=== PATIENT | male | born 1975 | race Caucasian/White ===

== ENCOUNTER 2017-02-16 06:14 | Day surgery (SDC) | payer OTHER, SELFPAY ==
[2017-02-14 15:41] VITALS: BMI 21.9
[2017-02-16] VITALS (11 sets, daily range): BP systolic 108–124; BP diastolic 65–77; PULSE 66–83; RESP 12–18; TEMP 36.2–43; O2SAT 95–98; BMI 21.9
[2017-02-16 07:04] LABS: Basophils # 0.1 K/mm3 (0-0.2); Basophils % 1.2 % (0.1-2.0); Eosinophils # 0.3 K/mm3 (0.0-0.4); Eosinophils % 5.6 % (0.1-12.0); Hematocrit 45.8 % (42.0-52.0); Lymphocytes # 2.2 K/mm3 (0.7-4.5); Lymphocytes % 35.9 K/mm3 (10-50); Mean Corpuscular HGB Conc 32.9 g/dL (31.8-35.4); Mean Corpuscular Hemoglobin 30.6 pg (27.0-31.2); Mean Corpuscular Volume 93.1 fl (80-94); Mean Platelet Volume 9.2 fl (7.4-10.4); Monocytes # 0.5 K/mm3 (0.1-1.0); Monocytes % 7.6 % (1.7-9.3); Neutrophils % 49.7 % (37.0-80.0); Platelet Count 228 K/mm3 (142-424); Red Blood Count 4.91 M/mm3 (4.60-6.20); Red Cell Distribution Width 12.4 % (11.5-17.5)
--- NOTE | 2017-02-16 07:09 | HMH.ANESCL ---
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
--- NOTE | 2017-02-16 07:12 | P.PN_ITS ---
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
[2017-02-16 07:17] LABS: Anion Gap 7.9 mEq/L (5-15); Blood Urea Nitrogen 13 mg/dL (7-18); Carbon Dioxide 29 mmol/L (21.0-32.0); Chloride 107 mmol/L (98-107); Creatinine Clearance Estimated 103 mg/ml (0-300); Estimated Glomerular Filt Rate > 60 ml/min (>60); GFR (African American) > 60 ML/MIN (>60); Glucose 101 mg/dL (74-106); Potassium 3.9 mmoL/L (3.5-5.1); Sodium 140 mmol/L (136-145)
[2017-02-16 07:22] LABS: Microscopic, Urine URINE MICROSCOPIC (MICROSCOPIC)
[2017-02-16 07:24] LABS: Appearance,Urine CLEAR (Clear); Bilirubin,Urine Negative (Negative); Blood, Urine Negative (Negative); Color,Urine YELLOW (Yellow); Glucose,Urine (UA) Negative (Negative); Ketones,Urine Negative (Negative); Leukocyte Esterase,Urine Negative (Negative); Nitrate,Urine Negative (Negative); PH,Urine 6.5 (5.0-8.5); Protein,Urine Negative (Negative); Urobilinogen,Urine 0.2 EU/dl (0.2)
[2017-02-16 07:34] LABS: Bacteria,Urine Trace /lpf; Squamous Epithelial Cell,Urine Occasional #/hpf (0-5)
--- NOTE | 2017-02-16 08:09 | PC.NURSE ---
0745-#16 FR BRADY CATHETER INSERTED PER DR. DICK AT THIS TIME.
--- NOTE | 2017-02-16 08:37 | SUR.OPER ---
0837-FAMILY UPDATED AT THIS TIME PER BUTCH TRINH
--- NOTE | 2017-02-16 09:05 | HMH.OPNOTE ---
Date of procedure: 02/16/17 Pre-op Diagnosis:: Right inguinal hernia Post-op diagnosis:: same Procedure performed:: Open repair right inguinal hernia Surgeon:: Tobias Gregg MD Anesthesia: other (General with laryngeal mask airway) Estimated blood loss (mL): 10 Operative findings:: Severe laxity of the inguinal floor with small hernia at the internal ring Operative note:: After informed consent was obtained, the patient was taken to the operating room and placed in the supine position. General anesthesia was induced and abdomen/groin/scrotum were prepped and draped in a sterile fashion. After infiltration with local anesthetic an oblique incision was made in the right groin. A combination of sharp dissection with scalpel and electrocautery was utilized to transect through Jose's fascia to the level of the external aponeurosis. The external aponeurosis was opened sharply to the level of the external ring the contents of the canal were elevated. Severe laxity of the floor was encountered. Dissection proximally revealed a small herniation at the internal ring. No hernia sac was visible. A medium PreFix plug was secured in the hernia with Ethibond suture. A PreFix mesh was then secured in an overlay fashion to the shelving edge inferiorly and fascial margin superiorly. The external aponeurosis was reapproximated with running Vicryl suture. Jose's fascia was reapproximated in the same manner. Skin was closed with 4-0 Monocryl in a running subcuticular manner. Sterile dressings were applied. The patient's anesthetic agents were reversed and he was taken to recovery after removal of his general laryngeal mask airway. Pathology: none sent Condition: stable Disposition: PACU Complications:: No immediate
--- NOTE | 2017-02-16 09:14 | HMH.ANESI ---
[facility] Anesthesia Record Part I Intake, IV Amount: 1,800 Estimated blood loss (mL): 10 Urine output (mL): 200 Blood Pressure: 122/75 SaO2: 96 Pulse Rate: 75 Respiratory Rate: 12 Temperature: 97.8 F Patient is:: Drowsy Stable to PACU at:: 09:10
--- NOTE | 2017-02-16 09:16 | P.PN_ITS ---
[facility] Anesthesia Record Part II Discharge Time: 09:40 Destination: [facility] PACU nurse assessment reviewed?: Yes Patient Condition:: Good Anesthesia Complications:: None
--- NOTE | 2017-02-16 09:16 | HMH.ANESII ---
[facility] Anesthesia Record Part II Discharge Time: 09:40 Destination: [facility] PACU nurse assessment reviewed?: Yes Patient Condition:: Good Anesthesia Complications:: None
[2017-02-16 16:02] LABS: Microscopic,Cath URINE MICROSCOPIC (MICROSCOPIC)
[2017-02-16 16:20] LABS: Appearance,Urine/Cath TURBID (Clear); Bilirubin,Cath Negative (Negative); Blood, Urine/Cath Negative (Negative); Color,Urine/Cath YELLOW (Yellow); Glucose,Urine/Cath (UA) Negative (Negative); Ketones,Urine/Cath Negative (Negative); Leukocyte Esterase,Cath Negative (Negative); Nitrate,Cath Negative (Negative); Protein,Urine/Cath Negative (Negative); Specific Gravity, Urine/Cath 1.015 (1.005-1.030); Urobilinogen,Cath 0.2 EU/dl (0.2)
[2017-02-16 16:31] LABS: Bacteria,Urine/Cath 4+ /lpf
== END 2017-02-16 10:45 | disposition home or self-care (01) ==
LOC: OR 06:16
PROVIDERS: PCP Family Medicine; Visit Provider Surgery
PROC: (CPT 49505; principal; 2017-02-16 07:30)
DX: K40.90 Unilateral inguinal hernia, without obstruction or gangrene, not specified as recurrent (principal)
CPT/HCPCS: 49505; 80048; 81001; 85025; 87086; 96374; J0131; J2405

== ENCOUNTER → 2019-12-09 14:56 | Outpatient (POV) | payer OTHER, SELFPAY | PROVIDERS: Visit Provider Dermatology | DX: Z00.00 Encounter for general adult medical examination without abnormal findings (principal) ==

== ENCOUNTER 2023-03-21 14:06 | Outpatient (CLI) | payer BC, SELFPAY | END 2023-03-21 23:59 | LOC: RT 14:07 | PROVIDERS: Visit Provider Physician Assistant | DX: R00.2 Palpitations (principal); R06.00 Dyspnea, unspecified | CPT/HCPCS: 93270 ==

== ENCOUNTER 2023-04-06 13:02 | Outpatient (CLI) | payer BC, SELFPAY ==
--- NOTE | 2023-04-06 13:04 | CA_ITS ---
APPROVED REPORT EXAM: Comprehensive 2D, Doppler, and color-flow Echocardiogram Supervisor Underwriting Clerks: Shelly Clemens, EDUARDO, RVS Ht: 6 ft 4 in Wt: 188lbs BSA: 2.16 BP: 128/86 mmHg Indications: Palpitations with exertion, Tobacco use 2D Dimensions Aortic Root 3.89 cm LA Volume 64.40 mL Left Atrium 2.65 cm LA Volume Index 29.80 mL/m2 (M/F) 16-34 RVID Base (AP4) 4.29 cm (M/F) 2.5-4.1 EF AP4 74.70 % LVOT 2.16 cm (M/F) 1.5-2.5 GL Strain -24.1 % M-Mode Dimensions RVDd 1.04 cm (0.9-2.6) LVDd 0.91 cm (3.5-5.7) Ao Diam 3.75 cm (2.0-3.7) LVDs 3.60 cm (3.5-5.7) IVSd 5.65 cm (0.6-1.1) PWd 0.00 cm (0.6-1.1) EF (Teich) 3300.00% EPSs 0.20 cm FS 295.60% EDV (Teich) 1.60 mL TAPSE 2.63 (<1.7) ESV (Teich) 54.40 mL LV Diastology E Decel Time 125 (160-240 msec) E/A Ratio 2.48 MED E' 9.1 (>= 7 cm/sec) MED A' 11.50 cm/s E'/MED E' Ratio 10.87 (<= 14) LAT E' 12.5 (>= 10 cm/sec) LAT A' 9.30 cm/s E/LAT E' Ratio 7.91 (<= 14) Aortic Valve LVOT Max 115.0 (70-110 cm/s) JUDI Index 1.55 cm2/m2 LVOT VTI 25.76 cm AoV Peak Henry. 133.0 (50-130 cm/s) AO Mean GR. 3.60 (<5 mmHg) AO VTI 28.3 (18-25 cm) JUDI (VTI) 3.34 (2.5-4.5 cm2) Mitral Valve MV E Max Henry. 99.0 (40-130 cm/s) MV A Velocity 40.0 (40-130 cm/s) E/A Ratio 2.48 MV Decel. Time 125 (160-240 ms) Left Ventricle The left ventricle is normal size. The left ventricular systolic function is normal. The left ventricular ejection fraction is within the normal range. There is normal left ventricular wall thickness. There is normal LV segmental wall motion. The left ventricular diastolic function is normal. LVEF is 60%. Right Ventricle The right ventricle is normal size. The right ventricular systolic function is normal. Atria The left atrium size is normal. The right atrium size is normal. There is no Doppler evidence of interatrial shunt. Aortic Valve The aortic valve is normal in structure. The aortic valve is trileaflet. There is no aortic valvular stenosis. No aortic regurgitation is present. Mitral Valve The mitral valve is normal in structure. No evidence of mitral valve stenosis. There is no mitral valve regurgitation noted. Tricuspid Valve The tricuspid valve leaflets are thin and pliable. Trace tricuspid regurgitation. There is insufficient TR jet to estimate RVSP. Pulmonic Valve The pulmonary valve is normal in structure. Trace pulmonic regurgitation. Great Vessels The aortic root is normal in size. The ascending aorta is not well visualized. IVC is normal in size and collapses >50% with inspiration. Pericardium There is no pericardial effusion. Other Information Study Quality: Adequate Conclusion Normal biventricular systolic function. No significant valvular stenosis or regurgitation. Electronically signed by : Loretta Nur MD 04/08/2023 18:06:46
== END 2023-04-06 23:59 ==
LOC: RT 13:04
PROVIDERS: Visit Provider Physician Assistant
DX: R00.2 Palpitations (principal); R06.00 Dyspnea, unspecified; R94.31 Abnormal electrocardiogram [ECG] [EKG]
CPT/HCPCS: 93306

== ENCOUNTER 2023-08-22 17:38 | Emergency (ER) | payer BC, SELFPAY ==
[2023-08-22 17:45] VITALS: BP 109/81; PULSE 82; RESP 20; TEMP 36.6; O2SAT 100; BMI 21.9
--- NOTE | 2023-08-22 17:58 | EXP.UTC ---
Discharge Plan Disposition Patient Disposition: Home, Self-Care Condition: Good Prescriptions Prescriptions: New dextromethorphan polistirex [Delsym 12 hour] 30 mg/5 mL suspension,extended rel 12 hr 10 ml PO Q12H PRN (Reason: cough) Qty: 89 0RF methylprednisolone [Medrol (Edgar)] 4 mg tablets,dose pack See Rx Instructions .Route .COMPLEX 6 Days Qty: 21 0RF Rx Instructions: taper pack; azithromycin [Zithromax Z-Edgar] 250 mg tablet See Rx Instructions .ROUTE .COMPLEX 5 Days Qty: 6 0RF Rx Instructions: For 250 mg dose pack: take 500 mg today (day 1), then 250 mg for 4 days (days 2-5) Referrals Follow up/Referrals: Alberto Woodward MD [Primary Care Provider] - See instructions Activity Restrictions/Add. Instructions Additional Instructions/Restrictions: *Monitor Temp, Over the counter Motrin or Tylenol as directed/as needed Tylenol every 4 hours and Motrin every 6 hours (as long as your family doctor has told you that you can take it) for fever or pain. and straight to ER if unable to lower temp less than 101.0 after medication given *Warm salt water gargles may help to soothe the throat *Throat Lozenges? *Warm fluids like tea with honey may help to soothe the throat? *Sleep elevated *Humidifier/Vaporizer Your throat swab was sent for culture. Those results are typically sent to your primary care. Be sure to follow up in 2-3 days with your family doctor/primary care physician if no improvement so they can review those result and treat if necessary. If you don?t have a primary care doctor, I recommend you get one but in the mean time, you will have to return to a walk in clinic Follow up IMMEDIATELY for new or worsening symptoms or no Noticeable improvement over the next 48-72 hours. 911 for difficulty breathing or swallowing Clinical Impressions Clinical Impression: Sinusitis Instructions Patient Instructions: DI for Sinusitis, Sinusitis, Sore Throat Discharge ED Provider: Niki Bojorquez [facility] General Stated complaint: postive Covid 08/20 possible strep Mode of Arrival: Ambulatory Source of Information: Patient Limitations: No Limitations Time Seen by Provider: 08/22/23 17:58 Description of Symptoms (Recalled from Triage Doc. by RN): PATIENT C/O SORE THROAT AND BODY ACHES X 3 DAYS. PATIENT REPORTS POSITIVE COVID TEST YESTERDAY HEENT Symptoms (Recalled from RN notes): Yes Resp Symptoms (Recalled from RN notes): No Skin Symptoms (Recalled from RN notes): No MS Symptoms (Recalled from RN notes): No Functional Status (Recalled from RN notes): WNL History of Present Illness Provider Complaint: Patient states that he has been having sinus pain and pressure, drainage in the back of his throat, body aches, fever and chills States he did test positive for COVID but feels like he may have strep throat or sinus infection on top of it Related Data Previous Rx's Medication Instructions Recorded azithromycin 250 mg tablet See Rx Instructions PO .COMPLEX 5 08/22/23 (Zithromax Z-Edgar) days #6 tabs dextromethorphan polistirex 30 10 ml PO Q12H PRN cough #89 mL 08/22/23 mg/5 mL oral susp ext.release 12hr (Delsym 12 hour) methylprednisolone 4 mg tablets in See Rx Instructions .Route 08/22/23 a dose pack (Medrol (Edgar)) .COMPLEX 6 days #21 tabs Allergies Allergy/AdvReac Type Severity Reaction Status Date / Time hydrocodone AdvReac Mild NA-NAUSEA/V Verified 08/06/23 13:13 OMITING Worker's Comp Is this a Worker's Comp case?: No PFSH PFS Disclaimer: The information contained in this section may have been updated after the patient was seen, as this information can be updated by other users. Medical History (Updated 08/22/23 @ 18:12 by Niki Bojorquez APRN) History of gastroesophageal reflux (GERD) Dyspnea Palpitations Surgical History (Updated 08/22/23 @ 17:55 by Laura Navarrete RN) H/O wisdom tooth extraction History of nasal septoplasty History of hernia repair History of tonsillectomy Social History Smoking Status: Former smoker second hand exposure: No alcohol intake: current alcohol intake frequency: 0-2 drinks per day counseling provided: provider counseling substance use type: denies use current occupational status: employed Travel in the last 8 weeks: None household members: spouse and children housing: house current occupation: [employer] ROS Obtained: Yes All systems reviewed & no additional complaints except as documented and Yes Systems reviewed as appropriate & no additional complaints except as documented Constitutional Constitutional: Reports system reviewed and no additional complaints, except as documented, Reports as per HPI, Reports body ache, Reports chills and Reports fever(s) ENT Ears, Nose, Mouth, and Throat: Reports system reviewed and no additional complaints, except as documented, Reports as per HPI, Reports sinus pain, Reports sinus pressure and Reports sore throat Cardiovascular Cardiovascular: Reports system reviewed and no additional complaints, except as documented and Reports as per HPI Respiratory Respiratory: Reports system reviewed and no additional complaints, except as documented and Reports as per HPI Gastrointestinal Gastrointestingal: Reports system reviewed and no additional complaints, except as documented and as per HPI Physical Exam General General appearance: alert and in no apparent distress ENT ENT exam: Present mucous membranes moist Expanded ENT Exam Nose exam: Present sinus tenderness Throat exam: Present other (Pharyngeal erythema noted with PND ) Respiratory Respiratory exam: Present normal lung sounds bilaterally; Absent respiratory distress or wheezes Cardiovascular Cardiovascular exam: Present regular rate, normal rhythm and normal heart sounds Neurological Exam Neurological exam: Present alert, oriented X3 and normal gait Medical Decision Making Kurt Inquiry Pt receiving controlled substance: No Kurt was queried for this patient: No Vital Signs: 08/22/23 17:45 Temperature 97.9 F Temperature Source Oral Pulse Rate [Left Brachial] 82 Respiratory Rate 20 Blood Pressure [Left Arm] 109/81 L Blood Pressure Mean [Left Arm] 90 Blood Pressure Source [Left Arm] Automatic Cuff Blood Pressure Position [Left Arm] Sitting 02 Sat by Pulse Oximetry 100 Oxygen Delivery Method Room Air Lab Data Lab results reviewed: Yes I reviewed the patient's lab results.
[2023-08-22 18:05] LABS: UTC Strep Screen (Rapid) Negative (Negative)
[2023-08-22 18:13] VITALS: BP 109/81; PULSE 82; RESP 20; TEMP 36.6; O2SAT 100
== END 2023-08-22 18:15 | disposition home or self-care (01) ==
PROVIDERS: Emergency Provider Nurse Practitioner; PCP Family Medicine
DX: J01.90 Acute sinusitis, unspecified (principal); R07.0 Pain in throat; R09.82 Postnasal drip
CPT/HCPCS: 87880; 99204; 99212; G0463

== ENCOUNTER 2023-08-29 17:00 | Outpatient (RCR) | payer BC, SELFPAY ==
--- NOTE | 2023-08-14 18:17 | HMH.PTOPEV ---
PT Outpatient Evaluation Rehab PT Outpatient Evaluation Start: 08/14/23 16:48 Freq: Status: Active Protocol: Document 08/14/23 16:48 CUCOJACINDA (Rec: 08/14/23 18:17 [id number]) E-signed By Teresa Ferrara, PT Outpatient Therapy Subjective History Subjective History Pt is a 48 y/o male who was referred to PT for R scapular dyskinesis. Pt reports onset of posterolateral shoulder pain ~15 years ago. Pt reports MEGHNA as pulling a heavy object while braced with his feet against the wall. Pt reports he felt a weird crunching sensation following. Pt reports ~8 years ago he had a shoulder radiograph and a MRI performed without significant findings. Pt denies having recent imaging of his shoulder . Pt reports he did have slight improvement in symptoms when he started performing upper body/core strengthening exercises at the gym, states he no longer does this. 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 Pt also reports his shoulder often feels like it sags when he is walking with his arms to his side especially after playing golf. Pt reports he went to the doctor due to pain starting to wake him up at night and disturbing his sleep. Pt denies neck pain or paresthesia. Pt denies further comorbidities to report. L handed Special test: -crank test New diagnosis of cancer in past 12 No months? Chief Complaint Pain Symptom Type Ache,Sharp Symptoms Relieved By Rest/Positioning,OTC Meds Symptoms Aggravated By Physical Activity,Lifting Current Functional Limitations Reaching,Lifting,Housework, Driving,Sleeping,Recreation Activity Symptom Description Intermittent Level of pain today (0-10) 0 Pain scale - at its best (0-10) 0 Pain scale - at its worst (0-10) 8 Shoulder/Elbow Eval Shoulder Objective Measurements Palpation Tenderness Shoulder Palpation Findings Tenderness Shoulder Palpation Overall Comment 2/4 TTP of teres major & minor swelling shoulder exam standard right Posture Shoulder Posture Standing Position (R) Rounded,(R) Forward Scapular Posture Standing Position (R) Winged Shoulder ROM Right Shoulder Abduction Active Range of 180 Motion (degrees) Shoulder Flexion Active Range of Motion 180 (degrees) Query Text: Shoulder External Rotation Active Range 90 (supine) of Motion (degrees) Shoulder Internal Rotation Active Range 70 (supine) of Motion (degrees) Shoulder MMT Lower Trapezius Strength Grade 4- Good- Middle Trapezius Strength Grade 4 Good Rhomboids Strength Grade 4 Good Serratus Anterior Strength Grade 4- Good- Shoulder Abduction Strength Grade 4 Good Shoulder Flexion Strength Grade 4 Good Shoulder External Rotation Strength 4 Good Grade Shoulder Internal Rotation Strength 5 Normal Grade Shoulder Special Tests Shoulder Drop Arm Test Negative Right Shoulder Posterior Apprehension Test Positive Right Shoulder Empty Can (Supraspinatus) Test Negative Right Shoulder Cramer-Jh Impingement Negative Right Test Shoulder Sulcus Sign Test Positive Right Elbow Objective Measurements QuickDA Activities Please rate your ability to do the following activities in the last week by selecting the number below the appropriate response. 1. Open a tight or new jar. Mild difficulty 2. Do heavy box nailer (e.g., wash Severe difficulty sellers, floors). 3. Carry a shopping bag or briefcase. Mild difficulty 4. Wash your back. Severe difficulty 5. Use a knife to cut food. No difficulty 6. Recreational activities in which you Moderate difficulty take some force or impact through your arm, shoulder, or hand (e.g., golf, hammering, tennis, etc.). 7. During the past week, to what extent Not at all has your arm, shoulder or hand problem interfered with your normal social activities with family, friends, neighbors or groups? 8. During the past week, were you Not limited at all limited in your work or other regular daily activites as a result of your arm, shoulder or hand problem? 9. Arm, shoulder or hand pain. Moderate 10. Tingling (pins and needles) in your Mild arm, shoulder or hand. 11. During the past week, how much Moderate difficulty difficulty have you had sleeping because of the pain in your arm, shoulder or hand? Quick DASH 26 Work Module (optional) The following questions ask about the impact of your arm, shoulder or hand problem on your ability to work (including homemaking if that is your main work role). 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 Yes 1. Using your usual technique for your Mild difficulty work? 2. Doing your usual work because of arm, Mild difficulty shoulder or hand pain? 3. Doing your work as well as you would Mild difficulty like? 4. Spending your usual amount of time No difficulty doing your work? Quick Dash Work Module Score 7 Sports/Performing Arts Module (optional) The following questions relate to the impact of your arm, shoulder or hand problem on playing your musical instrument or sport or both. If you play more than one sport or instrument (or play both), please answer with respect to the activity which is most important to you. Please indicate the sport or instrument Golf which is most important to you: Do you play a sport or instrument? Yes 1. Using your usual technique for Moderate difficulty playing your instrument or sport? 2. Playing your musical instrument or Moderate difficulty sport because of arm, shoulder or hand pain? 3. Playing your musical instrument or Moderate difficulty sport as well as you would like? 4. Spending your usual amount of time No difficulty practicing or playing your instrument or sport? 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 Improve Quick Dash Score Yes: Improve activity score to 21 or less to improve overall QOL Decrease Subjective C/O Pain Yes: Improve pain at worst to 6/10 to improve overall QOL Improve Self Care/Self Management Yes Patient to be Ind w/ HEP Yes Nursing Home Goals Number of Weeks 6 Increase Strength Yes: Improve scapular strength to 4+-5/5 grossly to assist with mechanics Restore Ability to Lift Objects to Yes: 10-15# with pain 4/10 or Shoulder Level less to assist with occupation Return to Recreational Activities Yes: report ability to play golf with pain 4/10 or less Improve Quick Dash Score Yes Decrease Subjective C/O Pain Yes: Improve pain at worst to 4/10 to improve overall QOL Patient to be Ind w/ Advanced HEP Yes Outpatient Therapy Plan of Care Treatment Plan May Include Therapeutic Exercise Including Home Yes Exercise Program Manual Therapy Techniques Yes Neuromuscular Re-education Yes Therapeutic Activities to Return to Yes Previous Functional/Work Level ADL/Self Care Education Yes Mechanical Traction Yes Dry Needling Yes Thermal Modalities Yes Electrical Stimulation Yes Ultrasound/Phonophoresis Yes Iontophoresis Yes Massage Yes Eval/Re-Eval Yes Frequency Times per week 2 Duration Number of Weeks 4-6 Addendums This patient is a candidate for social No or vocational rehab? Patient/Guardian verbally acknowledges Yes understanding of treatment program and consents to further treatment? Patient/Guardian verbally acknowledges Yes understanding of diagnosis, prognosis and goals for treatment? Eval Complexity PT Charges 43323 - Low Complexity PHYSICIAN CERTIFICATION: I certify the specified therapy services for [place] are required, authorized, and reviewed every 30 days.
== END 2023-08-29 18:10 | disposition home or self-care (01) ==
LOC: PT 17:00
PROVIDERS: Visit Provider Physician Assistant
DX: M25.311 Other instability, right shoulder (principal)
CPT/HCPCS: 97163

== ENCOUNTER 2023-11-12 08:15 | Day surgery (SDC) | payer BC, SELFPAY ==
[2023-11-09 10:46] VITALS: BMI 21.9
--- NOTE | 2023-11-12 08:54 | P.PNANES_ITS ---
[facility] Disclaimer: The information contained in this section may have been updated after the patient was seen, as this information can be updated by other users. Medical History (Updated 11/09/23 @ 10:46 by Kalyani Carter RN) Deviated septum History of COVID-19 Migraine History of gastroesophageal reflux (GERD) Dyspnea Palpitations Surgical History H/O wisdom tooth extraction History of nasal septoplasty History of hernia repair History of tonsillectomy Family History (Updated 11/09/23 @ 10:45 by Kalyani Carter RN) Other Diabetes Hypertension Social History (Updated 11/09/23 @ 10:43 by Kalyani Carter RN) Smoking Status: Former smoker second hand exposure: No alcohol intake: current alcohol intake frequency: 0-2 drinks per day counseling provided: provider counseling substance use type: denies use current occupational status: employed Travel in the last 8 weeks: None household members: spouse and children housing: house current occupation: [employer] Anesthesia Checklist Patient Identification Patient Identification: Verbal (Name & ) Structural Data Admitted From: Home Planned Operative Procedure/s: egd NPO Status Verified Time NPO: 00:00 Additional verifications Anesthesia Reactions: No Hx Blood Transfusions: No Blood Transfusion Reaction: No Airway Assessment Mallampati Score:: Class II C-Spine Mobility Assessed: Yes TMJ Mobility Assessed: Yes Dentition: Good Dentition Neurological Assessment Level of Consciousness: Awake and Appropriate Anesthesia Plan Anesthesia Risk discussed: Yes Anesthesia Plan: Verified ASA Class: II Anesthesia Type: MAC
[2023-11-12 08:56] VITALS: BP 119/83; PULSE 66; RESP 16; TEMP 36.6; O2SAT 96
[2023-11-12] MEDS: LACTATED RINGERS 1000ML 1,000 ML 25 ML IV (09:00)
--- NOTE | 2023-11-12 09:36 | EXP.HP ---
History of Present Illness *Admission Date: 11/12/23 *Reason for visit:: Dysphagia *History of present illness: Mr. De La Rosa is a 48-year-old gentleman who is here for diagnostic/therapeutic upper endoscopy secondary to dysphagia and reflux. The examination is deemed medically necessary for dysphagia. The patient has been seen, interviewed and examined prior to the procedure by both myself and the anesthesia provider. [facility] Disclaimer: The information contained in this section may have been updated after the patient was seen, as this information can be updated by other users. Medical History (Updated 11/12/23 @ 09:37 by Steven Lozada II, MD) Deviated septum History of COVID-19 Migraine History of gastroesophageal reflux (GERD) Dyspnea Palpitations Surgical History H/O wisdom tooth extraction History of nasal septoplasty History of hernia repair History of tonsillectomy Family History Other Diabetes Hypertension Social History Smoking Status: Former smoker second hand exposure: No alcohol intake: current alcohol intake frequency: 0-2 drinks per day counseling provided: provider counseling substance use type: denies use current occupational status: employed Travel in the last 8 weeks: None household members: spouse and children housing: house current occupation: [employer] Review of Systems Review of Systems Review of systems (narrative): Negative *Cardiovascular Comments: Negative *Gastrointestinal Comments: Negative *Genitourinary Comments: Negative *Musculoskeletal Comments: Negative *Neurologic Comments: Negative Meds Home Medications and Allergies Home Medications ?Medication ?Instructions ?Recorded ?Confirmed ?Type sildenafil 100 mg tablet 100 mg PO DAILY 10/30/23 10/30/23 History famotidine 10 mg tablet 10 mg PO DAILY 11/09/23 11/12/23 History multivitamin 1 tab PO DAILY 11/09/23 11/12/23 History New Prescriptions to Start Prescriptions: Allergies Allergy/AdvReac Type Severity Reaction Status Date / Time hydrocodone AdvReac Mild NA-NAUSEA/V Verified 11/12/23 08:54 OMITING Exam Data for Last 24 hours Vital signs and Labs for Last 24 Hours: Temp Pulse Resp BP Pulse Ox O2 Del Method 97.9 F 66 16 119/83 96 Room Air 11/12/23 08:56 11/12/23 08:56 11/12/23 08:56 11/12/23 08:56 11/12/23 08:56 11/12/23 08:56 I & O for Last 24 hours: Intake & Output 11/09/23 11/10/23 11/11/23 11/12/23 23:59 23:59 23:59 23:59 Weight 180 lb *Routine HEENT Exam Head: Present normocephalic Eye: Present EOMI and PERRL ENT: Present mucous membranes moist *Routine Neck Exam Neck: Present supple *Routine Respiratory Exam Respiratory: Present CTA bilaterally *Routine Cardiovascular Exam Cardiovascular: Present RRR *Routine Abdominal Exam Abdominal: Present soft and normoactive bowel sounds; Absent tenderness *Routine Rectal Exam Rectal:: deferred *Routine Genitalia Exam Genitalia:: deferred *Routine Extremities Exam Extremities: Absent cyanosis, clubbing or edema *Routine Skin Exam Skin: Present warm; Absent rash *Routine Neurological Exam Neurological: Present alert and oriented X3 Assessment and Plan *Assessment and plan (1) Dysphagia: Status: Acute Category: Medical Code(s): R13.10 - Dysphagia, unspecified (2) GERD (gastroesophageal reflux disease): Status: Acute Category: Medical Code(s): K21.9 - Gastro-esophageal reflux disease without esophagitis Plan A/P: 1. Dysphagia/GERD is the preprocedural diagnosis. The patient will be anesthetized/sedated using MAC sedation. The patient has been seen and examined. Cardiac and lung assessment prior to the examination is stable. Proceed with planned EGD
[2023-11-12 09:40] VITALS: O2SAT 96
--- NOTE | 2023-11-12 09:52 | P.PCN_ITS ---
[facility] Procedure Note Date: 11/12/23 Time: 09:53 Procedure Note:: Upper Endoscopy Procedure Report: Esophagogastroduodenoscopy with cold biopsies and TTS balloon dilation Endoscopost: Steven Lozada II, MD Referring Physician: Behzad Altamirano M.D. Date of Procedure: November 12, 2023 Equipment: Olympus GIF 190 standard upper endoscope Sedation: MAC sedation Indications: Mr. Jack is a 48-year-old gentleman who is here for diagnostic/therapeutic upper endoscopy secondary to dysphagia. He has had this for 2 to 3 years primarily with solid foods such as dry meats and breads. This has progressively worsened. He reports no weight loss. He does get some occasional reflux with bending over. He reports no indigestion, dyspepsia, bloating or belching. He does state that this runs in his family and his mother had to have esophageal dilation. Procedure: Prior to the procedure, a history and physical exam was performed, and patient's medications and allergies were reviewed. The risks, benefits and alternatives of the sedation and procedure were discussed with the patient. All questions were answered and informed consent was obtained. The patient was brought to the procedure room. Patient identification and proposed procedure were verified by the physician and the nurse. The patient was placed in a left lateral decubitus position and the scope was passed under direct vision. Throughout the procedure, the patient's blood pressure, pulse, and oxygen saturations were monitored continuously. The upper GI endoscopy was accomplished without difficulty. The patient tolerated the procedure well. Findings: The scope was passed directly into the upper esophagus and advanced to the third portion of the duodenum. The post bulbar duodenum and duodenal bulb were normal with normal mucosa and conniventes. The scope was withdrawn through a normal duodenal bulb and pylorus into the stomach. There was some mild linear reactive gastropathy of the prepyloric antrum. The remainder of the antrum, body and fundus of the stomach were grossly normal. Upon retroflexion there was a very small sliding 1 to 2 cm hiatal hernia. 2 biopsies were taken in the antrum and along the lesser curvature for histology to rule out gastritis and/or H pylori. The scope was then withdrawn into the esophagus. There was a distal esophageal ring. There was some mild corrugation and furrowing of the distal esophagus. Biopsies were taken from the distal and proximal esophagus to rule out eosinophilic esophagitis. Next, the esophagus was dilated to 20 mm with a TTS hydrostatic balloon. The entire esophagus was dilated. The original diameter of the distal ring was approximately 14-15 mm. The remainder of the esophageal mucosa was normal. Impression: 1. Distal esophageal ring dilated to 20 mm (from original diameter 14 to 15 mm)?suspect Schatzki's ring more so than eosinophilic esophagitis?follow-up biopsies 2. Nonerosive GERD with small sliding hiatal hernia 3. Mild linear reactive gastropathy of the prepyloric antrum Plan: I will follow-up the biopsies. The patient should have clinical improvement with dilation. I would recommend short-term (90-day) PPI therapy.
[2023-11-12 09:58] VITALS: BP 115/67; PULSE 82; RESP 16; TEMP 36.2; O2SAT 98
[2023-11-12 10:08] VITALS: BP 109/76; PULSE 73; RESP 16; TEMP 36.2; O2SAT 98
[2023-11-12 10:18] VITALS: BP 116/77; PULSE 70; RESP 16; TEMP 36.2; O2SAT 97
== END 2023-11-12 10:45 | disposition home or self-care (01) ==
PROVIDERS: PCP Internal Medicine Adolescent Medicine; Visit Provider Internal Medicine Gastroenterology
PROC: 0DJ08ZZ Inspection of Upper Intestinal Tract, Via Natural or Artificial Opening Endoscopic (ICD-10-PCS; CPT 43235; principal; 2023-11-12 10:00)
DX: R13.10 Dysphagia, unspecified (principal); K21.9 Gastro-esophageal reflux disease without esophagitis; K44.9 Diaphragmatic hernia without obstruction or gangrene; K31.9 Disease of stomach and duodenum, unspecified
CPT/HCPCS: 43239; 43249; 99221; C1726; J7120

== ENCOUNTER 2023-11-12 16:00 | Emergency (ER) | payer BC, SELFPAY ==
[2023-11-12 16:06] VITALS: BP 133/92; PULSE 111; RESP 14; O2SAT 97
--- NOTE | 2023-11-12 16:12 | CT_ITS ---
PROCEDURE INFORMATION: Exam: CTA Chest With Contrast Exam date and time: 11/12/2023 4:55 PM Age: 48 years old Clinical indication: Other: Large volume hematemesis; Prior surgery; Surgery date: Post-operative (0-2 days); Surgery type: Egd; Additional info: Egd today, large volume hematemesis TECHNIQUE: Imaging protocol: Computed tomographic angiography of the chest with contrast. Exam focused on the arteries. 3D rendering (Not supervised by radiologist): MIP and/or 3D reconstructed images were created by the technologist. Radiation optimization: All CT scans at this facility use at least one of these dose optimization techniques: automated exposure control; mA and/or kV adjustment per patient size (includes targeted exams where dose is matched to clinical indication); or iterative reconstruction. Contrast material: ISOVUE 370; Contrast volume: 80 ml; Contrast route: INTRAVENOUS (IV); Other contrast: Oral, gastrografin, 30; COMPARISON: CR XR CHEST 2V 11/12/2023 4:48 PM FINDINGS: Pulmonary arteries: Normal. No pulmonary emboli. Aorta: Unremarkable. No aortic aneurysm. No aortic dissection. Lungs: Small old calcified granulomas. No acute pulmonary infiltrates identified. Pleural spaces: Unremarkable. No pneumothorax. No pleural effusion. Heart: Unremarkable. No cardiomegaly. No pericardial effusion. No calcified coronary artery disease. Esophagus: Mild thickening of the distal esophagus. Consider esophagitis. Lymph nodes: Unremarkable. No enlarged lymph nodes. Bones/joints: Unremarkable. No acute fracture. Soft tissues: Unremarkable. IMPRESSION: 1. Mild thickening of the distal esophagus. Consider esophagitis. 2. No evidence of PE in the thoracic aorta is normal.
[2023-11-12 16:13] VITALS: BP 133/92; PULSE 100; RESP 18; O2SAT 99; BMI 21.9
--- NOTE | 2023-11-12 16:13 | XR_ITS ---
PROCEDURE INFORMATION: Exam: XR Chest Exam date and time: 11/12/2023 4:48 PM Age: 48 years old Clinical indication: Other: Hematemesis; Prior surgery; Surgery date: Post-operative (0-2 days); Surgery type: Egd; Additional info: Upright. Egd this morning. C/O hematemesis TECHNIQUE: Imaging protocol: Radiologic exam of the chest. Views: 2 views. COMPARISON: CR XR CHEST 2V 11/12/2023 4:48 PM FINDINGS: Lungs: Unremarkable. No consolidation. Pleural spaces: Unremarkable. No pleural effusion. No pneumothorax. Heart/Mediastinum: Unremarkable. No cardiomegaly. Bones/joints: Unremarkable. IMPRESSION: No acute findings.
--- NOTE | 2023-11-12 16:17 | PC.NURSE ---
DR BAZAN SPEAKING WITH DR KUNZ
--- NOTE | 2023-11-12 16:20 | CT_ITS ---
PROCEDURE INFORMATION: Exam: CTA Abdomen and Pelvis With Contrast Exam date and time: 11/12/2023 4:55 PM Age: 48 years old Clinical indication: Other: Large colume hematemesis; Prior surgery; Surgery date: Post-operative (0-2 days); Surgery type: Egd today; Additional info: Egd today, large colume hematemesis TECHNIQUE: Imaging protocol: Computed tomographic angiography of the abdomen and pelvis with contrast. Exam focused on the arteries. 3D rendering (Not supervised by radiologist): MIP and/or 3D reconstructed images were created by the technologist. Radiation optimization: All CT scans at this facility use at least one of these dose optimization techniques: automated exposure control; mA and/or kV adjustment per patient size (includes targeted exams where dose is matched to clinical indication); or iterative reconstruction. Contrast material: ISOVUE 370; Contrast volume: 80 ml; Contrast route: INTRAVENOUS (IV); Other contrast: Oral, gastrografin, 30; COMPARISON: CT ANGIO CHEST 11/12/2023 4:55 PM FINDINGS: Aorta: No aortic aneurysm. No aortic dissection. Celiac trunk and mesenteric arteries: No occlusion or significant stenosis. Renal arteries: No occlusion or significant stenosis. Right iliac arteries: No occlusion or significant stenosis. Left iliac arteries: No occlusion or significant stenosis. Liver: No mass. Gallbladder and biliary ducts: Unremarkable. No calcified stones. No ductal dilation. Pancreas: Unremarkable. No mass. No ductal dilation. Spleen: Unremarkable. No splenomegaly. Adrenal glands: Unremarkable. No mass. Kidneys and ureters: Unremarkable. No solid mass. No hydronephrosis. Stomach and bowel: Mild thickening of the distal esophagus. No obstruction. No mucosal thickening. Appendix: No evidence of appendicitis. Intraperitoneal space: Unremarkable. No free air. No significant fluid collection. Lymph nodes: Unremarkable. No enlarged lymph nodes. Urinary bladder: Unremarkable. No mass. Reproductive: Unremarkable as visualized. Bones/joints: No acute fracture. Soft tissues: Unremarkable. IMPRESSION: 1. Mild thickening of the distal esophagus. Consider esophagitis. 2. Normal mesenteric arteries.
[2023-11-12] MEDS: PANTOPRAZOLE 40MG VIAL 40 MG IV (16:26)
[2023-11-12] MEDS: LACTATED RINGERS 1000ML 1,000 ML 999 ML IV (16:26)
[2023-11-12 16:29] LABS: VBG Base Excess -1.3 mmol/L (-2.4-2.3); VBG HCO3 24.6 mmol/L (23-30); VBG Oxygen Saturation 54.3 % (50-70); VBG PCO2 47.8 mmol/L (35-51); VBG PH 7.33 mmol/L (7.31-7.41); VBG PO2 29.9 mmol/L (28-40); VBG Total CO2 26.1 mmol/L (23-27)
[2023-11-12 16:30] VITALS: BP 106/73; PULSE 86; RESP 15; O2SAT 98
[2023-11-12 16:31] LABS: Lactate Venous 2.3 mmol/L (0.4-2.0)
[2023-11-12 16:38] LABS: Basophils # 0.1 K/mm3 (0-0.2); Basophils % 0.8 % (0.1-2.0); Eosinophils # 0.7 K/mm3 (0.0-0.4); Eosinophils % 4.2 % (0.1-12.0); Hematocrit 50.1 % (42.0-52.0); Hemoglobin 15.5 g/dL (14.1-18.0); Lymphocytes # 3.5 K/mm3 (0.7-4.5); Lymphocytes % 22.6 % (10-50); Mean Corpuscular Hemoglobin 32.5 pg (27.0-31.2); Mean Corpuscular Volume 104.8 fl (80-94); Mean Platelet Volume 9.7 fl (7.4-10.4); Monocytes % 6.3 % (1.7-9.3); Neutrophils # 10.1 K/mm3 (1.8-7.8); Platelet Count 301 K/mm3 (142-424); Red Blood Count 4.78 M/mm3 (4.60-6.20); Red Cell Distribution Width 13.5 % (11.5-17.5); White Blood Count 15.3 K/mm3 (4.8-10.8)
[2023-11-12 16:40] LABS: MANUAL DIFFERENTIAL MANUAL DIFFERENTIAL (MANUAL DIFF)
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
[2023-11-12] MEDS: ONDANSETRON 4MG/2ML VIAL 4 MG IV (16:43)
[2023-11-12 16:44] LABS: Alanine Aminotransferase 28 U/L (12-78); Albumin Level 3.9 g/dl (3.5-5.0); Albumin/Globulin Ratio 1.7 (1.1-1.8); Alkaline Phosphatase 47 U/L (38-126); Anion Gap 7.4 mEq/L (5-15); Aspartate Amino Transferase 33 U/L (17-59); Bilirubin,Total 0.7 mg/dl (0.2-1.3); Blood Urea Nitrogen 28 mg/dl (9-20); Calcium 8.7 mg/dl (8.4-10.2); Carbon Dioxide 27 mmol/L (22.0-30.0); Chloride 107 mmol/L (98-107); Creatinine Clearance Estimated 96 mL/min (50-200); Estimated Glomerular Filt Rate 72 ml/min (>60); GFR (African American) 87 ML/MIN (>60); Globulin 2.3 g/dL (1.3-3.2); Glucose 107 mg/dl (74-100); Lipase 142 U/L (23-300); Potassium 4.4 mmoL/L (3.5-5.1); Sodium 137 mmol/L (136-145); Total Protein,Serum 6.2 g/dl (6.3-8.2)
[2023-11-12 16:45] LABS: INR 0.99 (0.9-1.1); Prothrombin Time 11.1 seconds (10.1-12.5)
[2023-11-12 17:03] VITALS: BP 122/78; PULSE 74; RESP 12; O2SAT 99
[2023-11-12] MEDS: IOPAMIDOL-370 (76%);100ML BOTTLE 80 ML IV (17:04)
[2023-11-12] MEDS: SODIUM CHLORIDE 0.9% 10ML SYR (RAD ONLY) 10 ML IV (17:04)
[2023-11-12] MEDS: 0.9 % SODIUM CHLORIDE 50 ML VIAL IV (17:04)
[2023-11-12 17:08] LABS: Ammonia < 9 umol/L (9-30); Lactic Acid 1.5 mmol/L (0.7-2.1)
[2023-11-12 17:44] VITALS: BP 108/67; PULSE 88; RESP 16; TEMP 36.6; O2SAT 99
[2023-11-12 18:28] LABS: Anisocytosis 1+; Eosinophils % 4 % (0-3); Lymphocytes % 14 % (10-50); Macrocytosis 1+; Monocytes % 4 % (2-9); Neutrophils % 78 % (42-76); Platelet Estimate Normal; Total Cells Counted 100
[2023-11-12 19:32] LABS: HIV (1&2) Antibody Rapid NONREACTIVE (NONREACTIVE)
[2023-11-12 20:31] LABS: Reflex Lactic Add Lactic Reflex
[2023-11-12 21:42] LABS: Lactic Acid Follow Up (RFLX 1) 1.7 mmol/L (0.7-2.1)
[2023-11-13] VITALS (10 sets, daily range): BP systolic 70–78; BP diastolic 43–53; PULSE 88–99; RESP 14–20; TEMP 36.6–36.8; O2SAT 96–99
[2023-11-14 08:22] LABS: HCV Ab Non Reactive (Non Reactive)
== END 2023-11-12 17:45 | disposition home or self-care (01) ==
PROVIDERS: Emergency Provider Emergency Medicine; PCP Internal Medicine Adolescent Medicine
DX: K92.0 Hematemesis (principal); R42 Dizziness and giddiness
CPT/HCPCS: 36415; 71046; 71275; 74174; 80053; 82140; 82803; 83605; 83690; 85007; 85025; 85027; 85610; 86803; 86850; 87040; 87389; 96361; 96374; 96375; 99285; J2405; J7120; P9016; Q9967

== ENCOUNTER 2023-11-12 18:05 | Inpatient (IN) | payer BC, SELFPAY ==
[2023-11-12] VITALS (10 sets, daily range): BP systolic 85–118; BP diastolic 56–75; PULSE 63–111; RESP 15–20; TEMP 36.5–36.8; O2SAT 96–100; BMI 21.9; BMI 22.9
--- NOTE | 2023-11-12 18:23 | ECG_ITS ---
APPROVED REPORT Exam: Resting ECG HR:63 bpm ECG Measurements Heart Rate 63 AXES IL 132 P 50 QRSd 86 QRS 74 QT 409 T 69 QTc 417 Conclusion SINUS RHYTHM NORMAL ECG Electronically signed by : FRANCISCO KYLE, 11/13/2023 07:29:02
--- NOTE | 2023-11-12 18:36 | [facility].EDGENADL ---
Discharge Plan Disposition Patient Disposition: Admitted Clinical Impressions Clinical Impression: Acute upper GI bleed, Vasovagal syncope Discharge ED Provider: Edouard Delatorre General Adult HPI General Chief complaint: Recheck/Abnormal Lab/Rx Stated complaint: Vomiting blood,nausea,sweating,pale in color Time Seen by Provider: 11/12/23 18:11 History of Present Illness HPI narrative: Please note that above description of symptoms, in this electronic medical record under categorization of recalled from ER triage doctor by RN are reflective of an initial nursing assessment, however, is not reflective of my full history and physical exam that was personally taken and clarified. Consequentially, this preceding description of symptoms, which may include the patient's categorized chief complaint in the EMR, do not reflect my personal clinical impression, and the ultimate description of history of present illness and patient stated complaints should be deferred to this section of the note. Unless stated otherwise or congruent with this section of the note, additional signs, symptoms, or incongruence should be interpreted as inaccurate with my clinical impression. Related Data Home Medications ?Medication ?Instructions ?Recorded ?Confirmed famotidine 10 mg tablet 10 mg PO DAILY 11/09/23 11/12/23 multivitamin 1 tab PO DAILY 11/09/23 11/12/23 Previous Rx's ?Medication ?Instructions ?Recorded ondansetron 4 mg disintegrating 4 mg PO Q6H PRN nausea and 11/12/23 tablet vomiting #10 tabs Allergies Allergy/AdvReac Type Severity Reaction Status Date / Time hydrocodone AdvReac Mild NA-NAUSEA/V Verified 11/12/23 16:20 OMITING PFSH PFSH Disclaimer: The information contained in this section may have been updated after the patient was seen, as this information can be updated by other users. Medical History (Updated 11/12/23 @ 19:27 by Edouard Delatorre MD) Deviated septum History of COVID-19 Migraine History of gastroesophageal reflux (GERD) Dyspnea Palpitations Surgical History H/O wisdom tooth extraction History of nasal septoplasty History of hernia repair History of tonsillectomy Family History Other Diabetes Hypertension Social History Smoking Status: Never smoker second hand exposure: No alcohol intake: current alcohol intake frequency: 0-2 drinks per day counseling provided: provider counseling substance use type: denies use current occupational status: employed Travel in the last 8 weeks: None household members: spouse and children housing: house current occupation: [employer] ROS Obtained: Yes All systems reviewed & no additional complaints except as documented Physical Exam General General appearance: alert and other (Pale, diaphoretic) Head Head exam: atraumatic and normocephalic Eye Eye exam: Present normal appearance, PERRL and EOMI Neck Neck exam: Present normal inspection, full ROM and trachea midline Respiratory Respiratory exam: Present normal lung sounds bilaterally; Absent respiratory distress, wheezes, stridor, accessory muscle use or prolonged expiratory phase Cardiovascular Cardiovascular exam: Present normal rhythm, bradycardia and other (Pulses equal symmetric in upper and lower extremities) Abdominal Exam Abdominal exam: Present soft; Absent distention, tenderness, guarding, rebound, rigidity or pulsatile mass Extremities Exam Extremities exam: Absent edema Neurological Exam Neurological exam: Present alert, oriented X3, CN II-XII intact and normal gait (Answered with 2 person assistance while feeling syncopal); Absent motor sensory deficit Skin Skin exam: Present diaphoresis and pallor; Absent erythema Medical Decision Making Medical Records Medical records reviewed: Yes I reviewed the patient's medical records. Screening: Per USPSTF and CDC recommendations, given the prevalence of disease in our region, it is our hospital?s policy to screen for HIV and viral Hepatitis for all patients aged 18 and over and those with ongoing risk factors. Kurt Inquiry Pt receiving controlled substance: No Kurt was queried for this patient: No Vital Signs: 11/12/23 18:07 11/12/23 18:24 11/12/23 18:30 Temperature Pulse Rate 63 68 Pulse Rate [Right Brachial] 70 Respiratory Rate 18 20 15 Blood Pressure 91/64 L 94/67 L Blood Pressure [Right Arm] 89/61 L Blood Pressure Mean Blood Pressure Mean [Right Arm] 70 02 Sat by Pulse Oximetry 96 96 100 Oxygen Delivery Method Room Air Room Air Room Air 11/12/23 18:46 11/12/23 19:06 11/12/23 19:07 Temperature 97.7 F Pulse Rate 77 84 Pulse Rate [Right Brachial] 80 Respiratory Rate 15 18 18 Blood Pressure 97/75 L 106/75 L Blood Pressure [Right Arm] 106/75 L Blood Pressure Mean 80 Blood Pressure Mean [Right Arm] 85 02 Sat by Pulse Oximetry 99 100 Oxygen Delivery Method Room Air Room Air Room Air Lab Data Lab Results 11/12/23 18:21: WBC 17.8 H, RBC 4.33 L, Hgb 14.2, Hct 43.5, MCV 100.4 H, MCH 32.8 H, MCHC 32.7, RDW 13.3, Plt Count 320, MPV 9.6, Neut % (Auto) 76.1, Lymph % (Auto) 16.7, [place] % (Auto) 4.8, Eos % (Auto) 1.7, Baso % (Auto) 0.6, Neut # (Auto) 13.5 H, Lymph # (Auto) 3.0, [place] # (Auto) 0.9, Eos # (Auto) 0.3, Baso # (Auto) 0.1, Sodium 138, Potassium 3.5 D, Chloride 103, Carbon Dioxide 26, Anion Gap 12.5, BUN 31 H, Creatinine 1.00, Estimated GFR 80, Est GFR ( Amer) 97, Glucose 154 H D, Calcium 8.6, Total Bilirubin 0.8, AST 26, ALT 30, Alkaline Phosphatase 58, Troponin I < 0.01, Total Protein 5.8 L, Albumin 3.5 D, Globulin 2.3, Albumin/Globulin Ratio 1.5 11/12/23 18:29: VBG pH 7.40, VBG pCO2 39.2, VBG pO2 21.9 L, VBG HCO3 23.7, VBG Total CO2 24.9, VBG O2 Saturation 38.2 L, VBG Base Excess -1.1, VBG Lactic Acid 2.6 H 11/12/23 18:21 11/12/23 18:21 Orders (Tests/Meds): ED MEDICATIONS Generic Name Dose Route Start Last Admin Trade Name Freq PRN Reason Stop Dose Admin Ondansetron HCl 4 mg 11/12/23 18:36 Ondansetron 4mg/2ml Vial IV 12/12/23 18:35 Q8HP PRN Nausea And Vomiting Pantoprazole Sodium 40 mg 11/12/23 21:00 Pantoprazole 40mg Vial IV 12/12/23 20:59 BID TONI Promethazine HCl 12.5 mg 11/12/23 18:55 11/12/23 18:58 Promethazine Hcl 25mg/Ml 1ml Vial IM 12/12/23 18:54 12.5 mg Q4HP PRN Administration Nausea And Vomiting Sodium Chloride 25 ml 11/12/23 18:55 Sodium Chloride 0.9% 25ml Bag IV 12/12/23 18:54 NEEDED PRN for Use with IV Promethazine Sucralfate 1 gm 11/12/23 21:00 Sucralfate 1gm/10ml Susp Udc PO 12/12/23 20:59 ACHS TONI ORDERS Category Date Time Status Gastroenterology Consult [Consult to Gastroenterology] Cons 11/13/23 07:00 Active [CONS] Routine Complete Blood Count Auto Diff Stat Lab 11/12/23 18:21 Completed Comprehensive Metabolic Panel Stat Lab 11/12/23 18:21 Completed Troponin I Q3H Lab 11/12/23 21:30 Ordered Troponin I Q3H Lab 11/13/23 00:30 Ordered Troponin I Stat Lab 11/12/23 18:21 Completed Venous Blood Gas Stat RT 11/12/23 18:29 Completed Medical Decision Narrative: 48-year-old male history of EGD today, 11/11 having had esophagus dilated and biopsy taken presenting as bounce back for vasovagal syncope. Patient was discharged by me about 30 minutes prior to this, on his way home with family, felt as if he was going to vomit. Rolled the windows down, felt as if he was going to pass out. turned around, brought patient right back to the emergency department. When getting patient registered, he stated he needed to urgently have a bowel movement. Took him to the bathroom, patient had large bowel movement and felt as if he was going to pass out. came in and had to help him because he stated he would pass out if he was going to stand up. Patient was put in wheelchair, syncopized. We moved him over to a bed in the hallway after he was moved out of the wheelchair and he was pale and diaphoretic, answering questions, but took 2 person transfer to movement of the bed. Upon laying down, patient states that he feels near immediately better. History obtained with chart review, patient, . On arrival, patient pale, diaphoretic, syncopal. Answering questions as he regained consciousness prior to my evaluation. Patient bradycardic without murmurs gallops or rubs. When being hooked up to the registered nurse cardiac telemetry, patient initially hypotensive 89/60, bradycardic around 60 bpm. On continuous pulse oximetry, patient 100% on room air. 1 L of fluids was started, patient stating that he is feeling much better just having laid back. Patient given warm blankets as he is feeling cold. Zofran also administered. Independent interpretation of workup demonstrates change in white count 15.3-17.8, could be D marginalization from vomiting and stress. Hemoglobin 15.5-14.2, platelets 301 to 320. This was after 1 L fluids in previous ED visit. Coags normal. Chemistry with BUN 31 up from 28, likely representing GI reabsorption of blood products. 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 Hospitalist was contacted and case was discussed at length, gastroenterology was also consulted and case was discussed at length. Patient be admitted for observation. Because patient high risk for clinical decompensation, deemed appropriate for inpatient admission. Results were relayed to patient who voiced understanding and patient was agreeable to inpatient admission and management. Patient was admitted to the hospital for further definitive management. Weigh Box Tender disclaimer Much of this encounter note is an electronic conciliator spoken language to printed text. Electronic conciliator of the spoken language may permit errors. Although I have reviewed the note, some errors may still exist. Critical Care Critical Care Time Critical Care Time: No
[2023-11-12 18:41] LABS: Basophils # 0.1 K/mm3 (0-0.2); Basophils % 0.6 % (0.1-2.0); Eosinophils # 0.3 K/mm3 (0.0-0.4); Eosinophils % 1.7 % (0.1-12.0); Hematocrit 43.5 % (42.0-52.0); Hemoglobin 14.2 g/dL (14.1-18.0); Lymphocytes % 16.7 % (10-50); Mean Corpuscular HGB Conc 32.7 g/dL (31.8-35.4); Mean Corpuscular Hemoglobin 32.8 pg (27.0-31.2); Mean Corpuscular Volume 100.4 fl (80-94); Mean Platelet Volume 9.6 fl (7.4-10.4); Monocytes # 0.9 K/mm3 (0.1-1.0); Monocytes % 4.8 % (1.7-9.3); Neutrophils # 13.5 K/mm3 (1.8-7.8); Neutrophils % 76.1 % (37.0-80.0); Platelet Count 320 K/mm3 (142-424); Red Blood Count 4.33 M/mm3 (4.60-6.20); Red Cell Distribution Width 13.3 % (11.5-17.5); White Blood Count 17.8 K/mm3 (4.8-10.8)
[2023-11-12 18:42] LABS: Albumin Level 3.5 g/dl (3.5-5.0); Chloride 103 mmol/L (98-107); Potassium 3.5 mmoL/L (3.5-5.1); Sodium 138 mmol/L (136-145)
[2023-11-12 18:45] LABS: Alanine Aminotransferase 30 U/L (12-78); Albumin/Globulin Ratio 1.5 (1.1-1.8); Alkaline Phosphatase 58 U/L (38-126); Anion Gap 12.5 mEq/L (5-15); Aspartate Amino Transferase 26 U/L (17-59); Bilirubin,Total 0.8 mg/dl (0.2-1.3); Blood Urea Nitrogen 31 mg/dl (9-20); Calcium 8.6 mg/dl (8.4-10.2); Carbon Dioxide 26 mmol/L (22.0-30.0); Estimated Glomerular Filt Rate 80 ml/min (>60); GFR (African American) 97 ML/MIN (>60); Globulin 2.3 g/dL (1.3-3.2); Glucose 154 mg/dl (74-100); Total Protein,Serum 5.8 g/dl (6.3-8.2)
[2023-11-12] MEDS: PROMETHAZINE HCL 25MG/ML 1ML VIAL 12.5 MG IM (18:58)
[2023-11-12 19:14] LABS: Troponin I < 0.01 ng/ml (0.00-0.034)
[2023-11-12 19:15] LABS: VBG Base Excess -1.1 mmol/L (-2.4-2.3); VBG HCO3 23.7 mmol/L (23-30); VBG Oxygen Saturation 38.2 % (50-70); VBG PCO2 39.2 mmol/L (35-51); VBG PO2 21.9 mmol/L (28-40); VBG Total CO2 24.9 mmol/L (23-27)
[2023-11-12 19:17] LABS: Lactate Venous 2.6 mmol/L (0.4-2.0)
--- NOTE | 2023-11-12 19:29 | PC.NURSE ---
pt arrived to floor at this time via stretcher
--- NOTE | 2023-11-12 19:34 | PC.NURSE ---
Shortly after arriving to the unit, Pt began to vomit red emesis approx. 1000ml. Pt BP: 74/56, HR: 127 at this time. provider contacted and x2 providers at bedside within 2 minutes.
[2023-11-12] MEDS: ONDANSETRON 4MG/2ML VIAL 4 MG IV ×2 (19:40→23:06)
[2023-11-12] MEDS: 0.9 % SODIUM CHLORIDE 1000ML 1,000 ML 999 ML IV (19:40)
--- NOTE | 2023-11-12 20:17 | P.HP_ITS ---
History of Present Illness *Admission Date: 11/12/23 *Reason for visit:: Hematemesis, presyncope *History of present illness: Clayton De La Rosa is a 48-year-old male with a medical history significant for dysphagia from Schatzki's ring s/p esophageal dilation on 11/12/2023, GERD return to the ED after dizziness and presyncope. Patient initially presented to hospital for outpatient EGD for dysphagia and underwent esophageal dilation for Schatzki's ring. Procedure went well and patient was stable after the procedure. Patient went home and was doing yard work when he started to feel nauseous, thereafter had multiple episodes of large-volume hematemesis with clots. Patient came to the ED and workup revealed stable hemoglobin and no further episodes of hematemesis or other GI bleeds, hemodynamically stable and therefore discharged. On the drive home, patient reported feeling nauseous and thought he was about to pass out. immediately brought the patient back to the ED. She took him to the bathroom and patient had a large dark/black bowel movement and again thought he was going to pass out, looked pale and diaphoretic. Patient was moved to the ED bed and patient reported feeling better. Blood pressure at that time was 89/60, HR 60 bpm. Other vitals stable. Repeat hemoglobin 15.5-14.2, after 1 L fluid bolus. BUN continues to rise from 28-31 indicating likely blood reabsorption with creatinine stable. Gastroenterology was consulted and recommended monitoring the patient overnight with serial H/H and vitals. Case was discussed with ED provider and decision was made to admit patient for upper GI bleed. [facility] Disclaimer: The information contained in this section may have been updated after the patient was seen, as this information can be updated by other users. Medical History (Updated 11/12/23 @ 20:55 by Iftikhar West MD) Deviated septum History of COVID-19 Migraine History of gastroesophageal reflux (GERD) Dyspnea Palpitations Surgical History H/O wisdom tooth extraction History of nasal septoplasty History of hernia repair History of tonsillectomy Family History Other Diabetes Hypertension Social History (Updated 11/12/23 @ 20:55 by Georgette Simon RN) Smoking Status: Never smoker second hand exposure: No alcohol intake: current alcohol intake frequency: 0-2 drinks per day counseling provided: provider counseling substance use type: denies use current occupational status: employed Travel in the last 8 weeks: None household members: spouse and children housing: house current occupation: [employer] Home Medications and Allergies Home Medications ?Medication ?Instructions ?Recorded ?Confirmed ?Type multivitamin 1 tab PO DAILY 11/09/23 11/12/23 History ondansetron 4 mg disintegrating 4 mg PO Q6H PRN nausea and 11/12/23 11/12/23 Rx tablet vomiting #10 tabs New Prescriptions to Start Prescriptions: Allergies Allergy/AdvReac Type Severity Reaction Status Date / Time hydrocodone AdvReac Mild NA-NAUSEA/V Verified 11/12/23 16:20 OMITING Exam Data for Last 24 hours Vital signs and Labs for Last 24 Hours: Temp Pulse Resp BP Pulse Ox O2 Del Method 97.7 F 84 18 106/75 L 100 Room Air 11/12/23 19:07 11/12/23 19:07 11/12/23 19:07 11/12/23 19:07 11/12/23 19:06 11/12/23 19:07 Laboratory Results - last 24 hr 11/12/23 18:21: WBC 17.8 H, RBC 4.33 L, Hgb 14.2, Hct 43.5, MCV 100.4 H, MCH 32.8 H, MCHC 32.7, RDW 13.3, Plt Count 320, MPV 9.6, Neut % (Auto) 76.1, Lymph % (Auto) 16.7, [place] % (Auto) 4.8, Eos % (Auto) 1.7, Baso % (Auto) 0.6, Neut # ( Auto) 13.5 H, Lymph # (Auto) 3.0, [place] # (Auto) 0.9, Eos # (Auto) 0.3, Baso # (Auto) 0.1, Sodium 138, Potassium 3.5 D, Chloride 103, Carbon Dioxide 26, Anion Gap 12.5, BUN 31 H, Creatinine 1.00, Estimated GFR 80, Est GFR ( Amer) 97, Glucose 154 H D, Calcium 8.6, Total Bilirubin 0.8, AST 26, ALT 30, Alkaline Phosphatase 58, Troponin I < 0.01, Total Protein 5.8 L, Albumin 3.5 D, Globulin 2.3, Albumin/Globulin Ratio 1.5 11/12/23 18:29: VBG pH 7.40, VBG pCO2 39.2, VBG pO2 21.9 L, VBG HCO3 23.7, VBG Total CO2 24.9, VBG O2 Saturation 38.2 L, VBG Base Excess -1.1, VBG Lactic Acid 2.6 H I & O for Last 24 hours: Intake & Output 11/09/23 11/10/23 11/11/23 11/12/23 23:59 23:59 23:59 23:59 Weight 81.647 kg Constitutional Constitutional: no acute distress Comments: Pale, diaphoretic. *Routine HEENT Exam Head: Present normocephalic Eye: Present EOMI and PERRL ENT: Present mucous membranes moist *Routine Neck Exam Neck: Present supple; Absent lymphadenopathy *Routine Respiratory Exam Respiratory: Present CTA bilaterally *Routine Cardiovascular Exam Cardiovascular: Present tachycardia *Routine Abdominal Exam Abdominal: Present soft and normoactive bowel sounds; Absent tenderness *Routine Rectal Exam Rectal:: deferred *Routine Genitalia Exam Genitalia:: deferred *Routine Extremities Exam Extremities: Absent cyanosis, clubbing or edema *Routine Skin Exam Skin: Present warm; Absent rash *Routine Neurological Exam Neurological: Present alert and oriented X3 Assessment and Plan *Assessment and plan (1) Acute upper GI bleed: Status: Acute Category: Medical Code(s): K92.2 - Gastrointestinal hemorrhage, unspecified (2) GERD (gastroesophageal reflux disease): Status: Acute Category: Medical Code(s): K21.9 - Gastro-esophageal reflux disease without esophagitis (3) Schatzki ring of distal esophagus: Status: Acute Category: Medical Code(s): K22.2 - Esophageal obstruction Plan Clayton De La Rosa is a 48-year-old male with a medical history significant for dysphagia from Schatzki's ring s/p esophageal dilation on 11/12/2023, GERD return to the ED after dizziness and presyncope. Patient initially presented to hospital for outpatient EGD for dysphagia and underwent esophageal dilation for Schatzki's ring. Procedure went well and patient was stable after the procedure. Patient went home and was doing yard work when he started to feel nauseous, thereafter had multiple episodes of large-volume hematemesis with clots. Patient came to the ED and workup revealed stable hemoglobin and no further episodes of hematemesis or other GI bleeds, hemodynamically stable and therefore discharged. On the drive home, patient reported feeling nauseous and thought he was about to pass out. immediately brought the patient back to the ED. She took him to the bathroom and patient had a large dark/black bowel movement and again thought he was going to pass out, looked pale and diaphoretic. Patient was moved to the ED bed and patient reported feeling better. Blood pressure at that time was 89/60, HR 60 bpm. Other vitals stable. Repeat hemoglobin 15.5-14.2, after 1 L fluid bolus. BUN continues to rise from 28-31 indicating likely blood reabsorption with creatinine stable. Gastroenterology was consulted and recommended monitoring the patient overnight with serial H/H and vitals. Case was discussed with ED provider and decision was made to admit patient for upper GI bleed. #Upper GI bleed #Schatzki's ring s/p esophageal dilation on 11/12/2023 ? Patient has had multiple large volume hematemesis and an episode of dark stool since outpatient esophageal dilation this morning. ? Upon my first examination with the patient, he had just had about 1 L of dark red emesis in the nausea bag. Continues to be hemodynamically stable. ? GI was again consulted, and recommended controlling the nausea to help alleviate retching and further irritation from esophageal dilation that is likely causing the bleed. ? Hemoglobin currently 14.2, initial 15.5. Hemodynamically stable. Not on anticoagulation, blood thinners. Normal coags, platelets 320. ? WBC 17.8, likely reactionary from the demarginalization from stress response. No fevers. ? Currently receiving his third liter normal saline bolus. ? IV normal saline at 100 mL/h thereafter. ? IV Protonix 40 mg twice daily. ? Next H/H at 11 PM. ? Continuous telemetry. ? Zofran, GI cocktail as needed for nausea/vomiting ? If patient continues to have hematemesis, can consider octreotide. ? GI consulted, will reevaluate patient in the morning. ? N.p.o. at midnight for possible repeat EGD tomorrow. ? EGD findings as below. EGD impression: 1. Distal esophageal ring dilated to 20 mm (from original diameter 14 to 15 mm)?suspect Schatzki's ring more so than eosinophilic esophagitis?follow-up biopsies 2. Nonerosive GERD with small sliding hiatal hernia 3. Mild linear reactive gastropathy of the prepyloric antrum CODE STATUS: Full code DVT prophylaxis: Patient is ambulatory
--- NOTE | 2023-11-12 20:20 | PC.NURSE ---
Pt up to BR at this time vomiting red emesis (unmeasurable). Pt c/o nausea and has been treated per APR. NS bolus given at this time. Pt BP 75/59, HR 111. MD at bedside.
[2023-11-12] MEDS: PANTOPRAZOLE 40MG VIAL 40 MG IV (20:29)
[2023-11-12] MEDS: 0.9 % SODIUM CHLORIDE 1000ML 1,000 ML 100 ML IV (20:30)
[2023-11-12] MEDS: SUCRALFATE 1GM/10ML SUSP UDC 1 GM PO (20:30)
[2023-11-12 21:38] LABS: Hematocrit 36.4 % (42.0-52.0)
[2023-11-12 21:40] LABS: Hemoglobin 11.9 g/dL (14.1-18.0)
[2023-11-12 21:57] LABS: Troponin I < 0.01 ng/ml (0.00-0.034)
[2023-11-12] MEDS: OCTREOTIDE ACETATE 500 MCG in 0.9 % SODIUM CHLORIDE 250 ML 25.5 MCG IV (23:05)
--- NOTE | 2023-11-12 23:45 | PC.NURSE ---
Report received from BUTCH Rodriguez. Patient is moving form Medsurg to Step Down status.
[2023-11-13] VITALS (37 sets, daily range): BP systolic 70–133; BP diastolic 43–84; PULSE 67–124; RESP 12–22; TEMP 36.6–37.8; O2SAT 96–100; BMI 23.6
--- NOTE | 2023-11-13 00:15 | PC.NURSE ---
Verbal order from [place] to change NS from 150/hr to 175/hr
--- NOTE | 2023-11-13 01:05 | PC.NURSE ---
Attending notified of current hypotensive BP readings. No new orders, but requests lab to come draw the H&H early
[2023-11-13] MEDS: RINGERS SOLUTION,LACTATED 500 ML 999 ML IV (01:26)
[2023-11-13 01:28] LABS: Hematocrit 29.5 % (42.0-52.0); Hemoglobin 9.4 g/dL (14.1-18.0)
--- NOTE | 2023-11-13 01:28 | PC.NURSE ---
Attending and documenting RN at bedside with patient
--- NOTE | 2023-11-13 02:13 | PC.NURSE ---
Surgical consent and blood consents obtained with spouse at bedside by documenting RN.
[2023-11-13] MEDS: 0.9 % SODIUM CHLORIDE 250 ML 25 ML IV ×2 (03:34→10:39)
[2023-11-13] MEDS: 0.9 % SODIUM CHLORIDE 1000ML 1,000 ML 175 ML IV ×2 (03:34→10:04)
--- NOTE | 2023-11-13 03:48 | PC.NURSE ---
Blood transfusion attached to [id number]
--- NOTE | 2023-11-13 04:01 | PC.NURSE ---
Attending has been made aware of trending vital signs at current time. No new orders
--- NOTE | 2023-11-13 06:11 | EXP.HP ---
History of Present Illness *Admission Date: 11/12/23 *Reason for visit:: Acute GI bleed *History of present illness: Mr. Jack admitted last evening. The patient underwent EGD with esophageal dilation of the distal esophageal ring yesterday. The EGD took place at 9:30 AM. The patient went home and was doing well until the afternoon after doing yard work and bending over. He stated that he felt nauseated and dizzy and then had bright red hematemesis of possibly 200 mL. He went to the emergency department and I was notified. Initially, the hemoglobin and hematocrit were 14.2 and 43.5. He was given hydration of 2 L and was hemodynamically stable and sent home. he returned thereafter with recurrent hematemesis and was admitted. Hgn dropped to 11.9 and then 9.4. Octreotide was initiated. Clayton De La Rosa is a 48-year-old male with a medical history significant for dysphagia from Schatzki's ring s/p esophageal dilation on 11/12/2023, GERD return to the ED after dizziness and presyncope. Patient initially presented to hospital for outpatient EGD for dysphagia and underwent esophageal dilation for Schatzki's ring. Procedure went well and patient was stable after the procedure. Patient went home and was doing yard work when he started to feel nauseous, thereafter had multiple episodes of large-volume hematemesis with clots. Patient came to the ED and workup revealed stable hemoglobin and no further episodes of hematemesis or other GI bleeds, hemodynamically stable and therefore discharged. On the drive home, patient reported feeling nauseous and thought he was about to pass out. immediately brought the patient back to the ED. She took him to the bathroom and patient had a large dark/black bowel movement and again thought he was going to pass out, looked pale and diaphoretic. Patient was moved to the ED bed and patient reported feeling better. Blood pressure at that time was 89/60, HR 60 bpm. Other vitals stable. Repeat hemoglobin 15.5-14.2, after 1 L fluid bolus. BUN continues to rise from 28-31 indicating likely blood reabsorption with creatinine stable. Gastroenterology was consulted and recommended monitoring the patient overnight with serial H/H and vitals. Case was discussed with ED provider and decision was made to admit patient for upper GI bleed. [facility] Disclaimer: The information contained in this section may have been updated after the patient was seen, as this information can be updated by other users. Medical History (Updated 11/13/23 @ 06:18 by Steven Lozada II, MD) Deviated septum History of COVID-19 Migraine History of gastroesophageal reflux (GERD) Dyspnea Palpitations Surgical History H/O wisdom tooth extraction History of nasal septoplasty History of hernia repair History of tonsillectomy Family History Other Diabetes Hypertension Social History (Updated 11/12/23 @ 20:55 by Georgette Simon RN) Smoking Status: Never smoker second hand exposure: No alcohol intake: current alcohol intake frequency: 0-2 drinks per day counseling provided: provider counseling substance use type: denies use current occupational status: employed Travel in the last 8 weeks: None household members: spouse and children housing: house current occupation: [employer] Home Medications and Allergies Home Medications ?Medication ?Instructions ?Recorded ?Confirmed ?Type multivitamin 1 tab PO DAILY 11/09/23 11/12/23 History ondansetron 4 mg disintegrating 4 mg PO Q6H PRN nausea and 11/12/23 11/12/23 Rx tablet vomiting #10 tabs New Prescriptions to Start Prescriptions: Allergies Allergy/AdvReac Type Severity Reaction Status Date / Time hydrocodone AdvReac Mild NA-NAUSEA/V Verified 11/12/23 16:20 OMITING Exam Data for Last 24 hours Vital signs and Labs for Last 24 Hours: Temp Pulse Resp BP Pulse Ox O2 Del Method 98.1 F 88 17 76/49 L 96 Room Air 11/13/23 05:08 11/13/23 05:08 11/13/23 05:08 11/13/23 05:08 11/13/23 05:08 11/13/23 05:08 Laboratory Results - last 24 hr 11/12/23 18:21: WBC 17.8 H, RBC 4.33 L, Hgb 14.2, Hct 43.5, MCV 100.4 H, MCH 32.8 H, MCHC 32.7, RDW 13.3, Plt Count 320, MPV 9.6, Neut % (Auto) 76.1, Lymph % (Auto) 16.7, [place] % (Auto) 4.8, Eos % (Auto) 1.7, Baso % (Auto) 0.6, Neut # (Auto) 13.5 H, Lymph # (Auto) 3.0, [place] # (Auto) 0.9, Eos # (Auto) 0.3, Baso # (Auto) 0.1, Sodium 138, Potassium 3.5 D, Chloride 103, Carbon Dioxide 26, Anion Gap 12.5, BUN 31 H, Creatinine 1.00, Estimated GFR 80, Est GFR ( Amer) 97, Glucose 154 H D, Calcium 8.6, Total Bilirubin 0.8, AST 26, ALT 30, Alkaline Phosphatase 58, Troponin I < 0.01, Total Protein 5.8 L, Albumin 3.5 D, Globulin 2.3, Albumin/Globulin Ratio 1.5 11/12/23 18:29: VBG pH 7.40, VBG pCO2 39.2, VBG pO2 21.9 L, VBG HCO3 23.7, VBG Total CO2 24.9, VBG O2 Saturation 38.2 L, VBG Base Excess -1.1, VBG Lactic Acid 2.6 H 11/12/23 21:25: Hgb 11.9 L D, Hct 36.4 L, Troponin I < 0.01 11/13/23 01:18: Hgb 9.4 L D, Hct 29.5 L I & O for Last 24 hours: Intake & Output 11/10/23 11/11/23 11/12/23 11/13/23 23:59 23:59 23:59 23:59 Intake Total 1835 / 1835 Output Total 1500 / 1500 0 / 0 Balance 335 / 335 0 / 0 Weight 188 lb 9.6 oz 188 lb 7.924 oz *Routine HEENT Exam Head: Present normocephalic Eye: Present EOMI and PERRL ENT: Present mucous membranes moist *Routine Neck Exam Neck: Present supple *Routine Respiratory Exam Respiratory: Present CTA bilaterally *Routine Cardiovascular Exam Cardiovascular: Present RRR *Routine Abdominal Exam Abdominal: Present soft and normoactive bowel sounds; Absent tenderness *Routine Rectal Exam Rectal:: deferred *Routine Genitalia Exam Genitalia:: deferred *Routine Extremities Exam Extremities: Absent cyanosis, clubbing or edema *Routine Skin Exam Skin: Present warm; Absent rash *Routine Neurological Exam Neurological: Present alert and oriented X3 Assessment and Plan *Assessment and plan (1) Upper GI bleed: Status: Acute Category: Medical Code(s): K92.2 - Gastrointestinal hemorrhage, unspecified (2) Acute upper GI bleed: Status: Acute Category: Medical Code(s): K92.2 - Gastrointestinal hemorrhage, unspecified (3) Hematemesis of fresh blood: Status: Acute Category: Medical Code(s): K92.0 - Hematemesis Plan A/P: 1. Upper GI bleed is the preprocedural diagnosis. The patient will be anesthetized/sedated using MAC sedation. The patient has been seen and examined. Cardiac and lung assessment prior to the examination is stable. Proceed with planned EGD
--- NOTE | 2023-11-13 06:11 | PC.NURSE ---
PT LEFT FLOOR WITH PRE OP AT THIS TIME
--- NOTE | 2023-11-13 06:12 | PC.NURSE ---
Patient leaving the floor with OR staff
[2023-11-13 06:41] LABS: Basophils % 0.2 % (0.1-2.0); Eosinophils % 0.1 % (0.1-12.0); Hematocrit 31.4 % (42.0-52.0); Lymphocytes # 1.8 K/mm3 (0.7-4.5); Lymphocytes % 23.2 % (10-50); Mean Corpuscular HGB Conc 33.5 g/dL (31.8-35.4); Mean Corpuscular Hemoglobin 33.8 pg (27.0-31.2); Mean Corpuscular Volume 100.8 fl (80-94); Mean Platelet Volume 9.9 fl (7.4-10.4); Monocytes # 0.5 K/mm3 (0.1-1.0); Monocytes % 5.7 % (1.7-9.3); Neutrophils # 5.6 K/mm3 (1.8-7.8); Neutrophils % 70.8 % (37.0-80.0); Platelet Count 223 K/mm3 (142-424); Red Blood Count 3.11 M/mm3 (4.60-6.20); Red Cell Distribution Width 13.8 % (11.5-17.5); White Blood Count 7.9 K/mm3 (4.8-10.8)
[2023-11-13] MEDS: EPINEPHrine 0.1 MG/ML 10ML SYRINGE (CRASH CART) 2 MG (06:45)
[2023-11-13 06:48] LABS: Chloride 108 mmol/L (98-107)
[2023-11-13 06:49] LABS: Albumin Level 2.3 g/dl (3.5-5.0); Potassium 4.3 mmoL/L (3.5-5.1); Sodium 137 mmol/L (136-145)
[2023-11-13 06:51] LABS: Blood Urea Nitrogen 23 mg/dl (9-20); Creatinine Clearance Estimated 110 mL/min (50-200); Estimated Glomerular Filt Rate 80 ml/min (>60); GFR (African American) 97 ML/MIN (>60)
[2023-11-13 06:52] LABS: Alanine Aminotransferase 18 U/L (12-78); Albumin/Globulin Ratio 1.2 (1.1-1.8); Alkaline Phosphatase 41 U/L (38-126); Anion Gap 7.3 mEq/L (5-15); Aspartate Amino Transferase 19 U/L (17-59); Bilirubin,Total 0.7 mg/dl (0.2-1.3); Calcium 7.2 mg/dl (8.4-10.2); Carbon Dioxide 26 mmol/L (22.0-30.0); Globulin 1.9 g/dL (1.3-3.2); Glucose 137 mg/dl (74-100); Total Protein,Serum 4.2 g/dl (6.3-8.2)
--- NOTE | 2023-11-13 06:53 | [facility].PROCNOTE ---
[facility] Procedure Note Date: 11/13/23 Time: 06:53 Procedure Note:: Upper Endoscopy Procedure Report: Esophagogastroduodenoscopy with submucosal epinephrine injection and Endo Clip placement Endoscopost: Steven Lozada II, MD Referring Physician: Behzad Altamirano M.D./Mariano Espinoza MD Date of Procedure: November 13, 2023 Equipment: Olympus GIF 190 standard upper endoscope Sedation: MAC sedation Indications: Mr. Jack is a 48-year-old gentleman who had dilation of a distal esophageal ring/Schatzki's ring yesterday. He did well post endoscopy and was sent home. This was done approximately 9:30 AM. At 3 PM, he noted nausea and had a bout of bright red hematemesis of about 200 mL. He came to the emergency room. His hemoglobin and hematocrit were 14.2 and 43.5 and he was hemodynamically stable. He was sent home and then return due to diaphoresis/lightheadedness. He was admitted. His hemoglobin and hematocrit declined to 11.9 and 36.4 and then eventually down to 9.4 and 29.5. He was started on octreotide and had no further hematemesis. He did pass 2 or 3 bouts of melena. His heart rate has been between 80 and 95 and his blood pressure decline with systolics in the 70s and 80s. He received 1 unit of PRBCs last evening. Procedure: Prior to the procedure, a history and physical exam was performed, and patient's medications and allergies were reviewed. The risks, benefits and alternatives of the sedation and procedure were discussed with the patient. All questions were answered and informed consent was obtained. The patient was brought to the procedure room. Patient identification and proposed procedure were verified by the physician and the nurse. The patient was placed in a left lateral decubitus position and the scope was passed under direct vision. Throughout the procedure, the patient's blood pressure, pulse, and oxygen saturations were monitored continuously. The upper GI endoscopy was accomplished without difficulty. The patient tolerated the procedure well. Findings: The scope was passed directly into the upper esophagus and advanced to the third portion of the duodenum. The post bulbar duodenum and duodenal bulb were normal with normal mucosa and conniventes. The scope was withdrawn through a normal duodenal bulb and pylorus into the stomach. There was a moderate amount of old blood in the stomach dark/coffee-ground. There was no fresh blood. Upon retroflexion there was a small 1 to 2 cm hiatal hernia. The scope was then withdrawn into the esophagus. There was a tear at the GE junction identified with clot adherent to the tear. This extended approximately 1 to 2 cm. The clot was removed with a forceps. There was minor venous oozing. Next, 3 to 4 cc of 1-10,000 epinephrine were injected in and at the site with blanching of the mucosa. There was some hemostasis lastly, 2 hemoclips were placed over the tear with complete closure of complete hemostasis. The remainder of the esophageal mucosa was normal. Impression: 1. Distal esophageal tear with adherent clot status post removal of polyp with epinephrine injection and Endo Clip placement with hemostasis and control of bleeding. Plan: I will discuss the findings with the patient and monitor overnight. I would continue hemoglobin/hematocrit every 8 hours. I would continue NPO with ice chips and sips. We will begin to wean octreotide drip.
[2023-11-13 07:09] LABS: Magnesium 1.5 mg/dl (1.6-2.3)
[2023-11-13 07:14] LABS: Hemoglobin 10.6 g/dL (14.1-18.0)
[2023-11-13] MEDS: OCTREOTIDE ACETATE 500 MCG in 0.9 % SODIUM CHLORIDE 250 ML 25.5 MCG IV (08:23)
[2023-11-13] MEDS: PANTOPRAZOLE 40MG VIAL 40 MG IV (08:23)
[2023-11-13] MEDS: ONDANSETRON 4MG/2ML VIAL 4 MG IV (09:51)
[2023-11-13] MEDS: MAGNESIUM SULFATE IN WATER 2 GM/50 ML PIGGYBACK IV (10:28)
--- NOTE | 2023-11-13 13:11 | PC.NURSE ---
octreotide drip stopped at 1130 per .
[2023-11-13 13:24] LABS: Hematocrit 31.5 % (42.0-52.0); Hemoglobin 10.1 g/dL (14.1-18.0)
--- NOTE | 2023-11-13 15:20 | EXP.PN ---
Subjective *Date: 11/13/23 *Time: 15:20 Interval history: Overnight, patient had several episodes of hematemesis, bloody bowel movements. Stabilized after starting octreotide. Given 1 unit PRBC. Talk to GI, plan is to scope patient in the morning. Exam Data for Last 24 hours Vital signs and Labs for Last 24 Hours: Temp Pulse Resp BP Pulse Ox O2 Del Method O2 Flow Rate 98.7 F 83 22 93/62 L 99 Room Air 5 11/13/23 14:00 11/13/23 14:00 11/13/23 14:00 11/13/23 14:00 11/13/23 14:00 11/13/23 14:00 11/13/23 06:31 Laboratory Results - last 24 hr 11/12/23 18:21: WBC 17.8 H, RBC 4.33 L, Hgb 14.2, Hct 43.5, MCV 100.4 H, MCH 32.8 H, MCHC 32.7, RDW 13.3, Plt Count 320, MPV 9.6, Neut % (Auto) 76.1, Lymph % (Auto) 16.7, [place] % (Auto) 4.8, Eos % (Auto) 1.7, Baso % (Auto) 0.6, Neut # (Auto) 13.5 H, Lymph # (Auto) 3.0, [place] # (Auto) 0.9, Eos # (Auto) 0.3, Baso # (Auto) 0.1, Sodium 138, Potassium 3.5 D, Chloride 103, Carbon Dioxide 26, Anion Gap 12.5, BUN 31 H, Creatinine 1.00, Estimated GFR 80, Est GFR ( Amer) 97, Glucose 154 H D, Calcium 8.6, Total Bilirubin 0.8, AST 26, ALT 30, Alkaline Phosphatase 58, Troponin I < 0.01, Total Protein 5.8 L, Albumin 3.5 D, Globulin 2.3, Albumin/Globulin Ratio 1.5 11/12/23 18:29: VBG pH 7.40, VBG pCO2 39.2, VBG pO2 21.9 L, VBG HCO3 23.7, VBG Total CO2 24.9, VBG O2 Saturation 38.2 L, VBG Base Excess -1.1, VBG Lactic Acid 2.6 H 11/12/23 21:25: Hgb 11.9 L D, Hct 36.4 L, Troponin I < 0.01 11/13/23 01:18: Hgb 9.4 L D, Hct 29.5 L 11/13/23 06:02: WBC 7.9 D, RBC 3.11 L D, Hgb 10.6 L D, Hct 31.4 L, MCV 100.8 H, MCH 33.8 H, MCHC 33.5, RDW 13.8, Plt Count 223 D, MPV 9.9, Neut % (Auto) 70.8, Lymph % (Auto) 23.2, [place] % (Auto) 5.7, Eos % (Auto) 0.1, Baso % (Auto) 0.2, Neut # (Auto) 5.6, Lymph # (Auto) 1.8, [place] # (Auto) 0.5, Eos # (Auto) 0.0, Baso # (Auto) 0.0, Sodium 137, Potassium 4.3 D, Chloride 108 H, Carbon Dioxide 26, Anion Gap 7.3, BUN 23 H D, Creatinine 1.00, Estimated Creat Clear 110, Estimated GFR 80, Est GFR ( Amer) 97, Glucose 137 H, Calcium 7.2 L, Magnesium 1.5 L, Total Bilirubin 0.7, AST 19 D, ALT 18 D, Alkaline Phosphatase 41, Total Protein 4.2 L D, Albumin 2.3 L D, Globulin 1.9, Albumin/Globulin Ratio 1.2 11/13/23 13:10: Hgb 10.1 L, Hct 31.5 L I & O for Last 24 hours: Intake & Output 11/10/23 11/11/23 11/12/23 11/13/23 23:59 23:59 23:59 23:59 Intake Total 1835 / 1835 Output Total 1500 / 1500 0 / 0 Balance 335 / 335 0 / 0 Weight 85.548 kg 85.5 kg Constitutional Constitutional: no acute distress *Routine HEENT Exam Head: Present normocephalic Eye: Present EOMI and PERRL ENT: Present mucous membranes moist *Routine Neck Exam Neck: Present supple; Absent lymphadenopathy *Routine Respiratory Exam Respiratory: Present CTA bilaterally *Routine Cardiovascular Exam Cardiovascular: Present RRR *Routine Abdominal Exam Abdominal: Present soft and normoactive bowel sounds; Absent tenderness *Routine Extremities Exam Extremities: Absent cyanosis, clubbing or edema *Routine Skin Exam Skin: Present warm; Absent rash *Routine Neurological Exam Neurological: Present alert and oriented X3 Assessment and Plan *Assessment and plan (1) Acute upper GI bleed: Status: Acute Category: Medical Code(s): K92.2 - Gastrointestinal hemorrhage, unspecified (2) GERD (gastroesophageal reflux disease): Status: Acute Category: Medical Code(s): K21.9 - Gastro-esophageal reflux disease without esophagitis (3) Schatzki ring of distal esophagus: Status: Acute Category: Medical Code(s): K22.2 - Esophageal obstruction Plan Clayton De La Rosa is a 48-year-old male with a medical history significant for dysphagia from Schatzki's ring s/p esophageal dilation on 11/12/2023, GERD return to the ED after dizziness and presyncope. Patient initially presented to hospital for outpatient EGD for dysphagia and underwent esophageal dilation for Schatzki's ring. Procedure went well and patient was stable after the procedure. Patient went home and was doing yard work when he started to feel nauseous, thereafter had multiple episodes of large-volume hematemesis with clots. Patient came to the ED and workup revealed stable hemoglobin and no further episodes of hematemesis or other GI bleeds, hemodynamically stable and therefore discharged. On the drive home, patient reported feeling nauseous and thought he was about to pass out. immediately brought the patient back to the ED. She took him to the bathroom and patient had a large dark/black bowel movement and again thought he was going to pass out, looked pale and diaphoretic. Patient was moved to the ED bed and patient reported feeling better. Blood pressure at that time was 89/60, HR 60 bpm. Other vitals stable. Repeat hemoglobin 15.5-14.2, after 1 L fluid bolus. BUN continues to rise from 28-31 indicating likely blood reabsorption with creatinine stable. Gastroenterology was consulted and recommended monitoring the patient overnight with serial H/H and vitals. Case was discussed with ED provider and decision was made to admit patient for upper GI bleed. #Upper GI bleed #Schatzki's ring s/p esophageal dilation on 11/12/2023 ? Patient has had multiple large volume hematemesis and an episode of dark stool since outpatient esophageal dilation this morning. ? He continued to have 3-4 episodes of hematemesis and bloody bowel movements overnight. Improved with starting octreotide. ? Talk to GI twice overnight, plan is to stay course and perform EGD this morning. ? EGD this morning revealed distal esophageal tear with adherent clot s/p removal of polyp with epinephrine, and Endo Clip placement with hemostasis. No further episodes of hematemesis, though patient did have a mild bloody bowel movement in early afternoon. Repeat hemoglobin stable 10.1. ? Hemoglobin stable. Hemodynamically stable. Not on anticoagulation, blood thinners. Normal coags, platelets 320. ? Leukocytosis resolved from WBC 17.8, likely reactionary from the demarginalization from stress response. No fevers. ? Patient transitioned to full liquid diet this afternoon after transitioning off octreotide. Currently tolerating diet appropriately. ? GI following, appreciate efforts and recommendations. ? H/H every 8 hours. ? Plan is to monitor patient until tomorrow, and if stable plan to DC with close follow-up with GI. ? Zofran, GI cocktail as needed for nausea/vomiting. Initial EGD impression: 1. Distal esophageal ring dilated to 20 mm (from original diameter 14 to 15 mm)?suspect Schatzki's ring more so than eosinophilic esophagitis?follow-up biopsies 2. Nonerosive GERD with small sliding hiatal hernia 3. Mild linear reactive gastropathy of the prepyloric antrum Repeat EGD Impression: 1. Distal esophageal tear with adherent clot status post removal of polyp with epinephrine injection and Endo Clip placement with hemostasis and control of bleeding. CODE STATUS: Full code DVT prophylaxis: Patient is ambulatory
--- NOTE | 2023-11-13 19:15 | PC.NURSE ---
TOOK OVER CARE FOR PATIENT AROUND 1300. PATIENT HAS HAD NO NEEDS OR C/O NOTED SINCE THEN. TOLERATING FULL LIQUID DIET WELL. GETTING A LOT OF REST. NO BLEEDING NOTED, NA/VO, OR C/O PAIN. VSS.
[2023-11-13] MEDS: PANTOPRAZOLE 40MG TABLET 40 MG PO (20:40)
[2023-11-14] VITALS: BP 91/50; PULSE 67; RESP 16; TEMP 36.9; O2SAT 96
[2023-11-14 04:00] VITALS: BP 86/45; PULSE 66; RESP 16; TEMP 36.9; O2SAT 98; BMI 23.5
[2023-11-14 05:15] VITALS: BP 86/54
[2023-11-14 07:01] LABS: Albumin Level 2.4 g/dl (3.5-5.0); Chloride 106 mmol/L (98-107); Potassium 3.8 mmoL/L (3.5-5.1); Sodium 136 mmol/L (136-145)
[2023-11-14 07:04] LABS: Alanine Aminotransferase 15 U/L (12-78); Albumin/Globulin Ratio 1.3 (1.1-1.8); Alkaline Phosphatase 37 U/L (38-126); Anion Gap 4.8 mEq/L (5-15); Aspartate Amino Transferase 19 U/L (17-59); Bilirubin,Total 0.5 mg/dl (0.2-1.3); Blood Urea Nitrogen 17 mg/dl (9-20); Calcium 7.5 mg/dl (8.4-10.2); Carbon Dioxide 29 mmol/L (22.0-30.0); Creatinine Clearance Estimated 111 mL/min (50-200); Estimated Glomerular Filt Rate 80 ml/min (>60); GFR (African American) 97 ML/MIN (>60); Globulin 1.8 g/dL (1.3-3.2); Glucose 95 mg/dl (74-100); Total Protein,Serum 4.2 g/dl (6.3-8.2)
[2023-11-14 08:00] VITALS: BP 85/47; PULSE 70; RESP 18; TEMP 36.6; O2SAT 99
[2023-11-14 08:46] LABS: Basophils # 0.1 K/mm3 (0-0.2); Basophils % 0.7 % (0.1-2.0); Eosinophils # 0.3 K/mm3 (0.0-0.4); Eosinophils % 5.1 % (0.1-12.0); Hematocrit 25.6 % (42.0-52.0); Lymphocytes # 2.2 K/mm3 (0.7-4.5); Lymphocytes % 32.6 % (10-50); Mean Corpuscular HGB Conc 31.9 g/dL (31.8-35.4); Mean Corpuscular Hemoglobin 32.9 pg (27.0-31.2); Mean Corpuscular Volume 103.4 fl (80-94); Mean Platelet Volume 10.4 fl (7.4-10.4); Monocytes # 0.4 K/mm3 (0.1-1.0); Monocytes % 6.3 % (1.7-9.3); Neutrophils # 3.7 K/mm3 (1.8-7.8); Neutrophils % 55.2 % (37.0-80.0); Platelet Count 182 K/mm3 (142-424); Red Blood Count 2.48 M/mm3 (4.60-6.20); Red Cell Distribution Width 13.8 % (11.5-17.5); White Blood Count 6.7 K/mm3 (4.8-10.8)
[2023-11-14 08:49] LABS: Hemoglobin 8.2 g/dL (14.1-18.0)
[2023-11-14] MEDS: ACETAMINOPHEN 500MG TAB 1000 MG PO (09:00)
--- NOTE | 2023-11-14 10:52 | P.DS_ITS ---
General Admission date:: 11/12/23 Discharge date: 11/14/23 HPI HPI HPI: Mr. Jack admitted last evening. The patient underwent EGD with esophageal dilation of the distal esophageal ring yesterday. The EGD took place at 9:30 AM. The patient went home and was doing well until the afternoon after doing yard work and bending over. He stated that he felt nauseated and dizzy and then had bright red hematemesis of possibly 200 mL. He went to the emergency department and I was notified. Initially, the hemoglobin and hematocrit were 14.2 and 43.5. He was given hydration of 2 L and was hemodynamically stable and sent home. he returned thereafter with recurrent hematemesis and was admitted. Hgn dropped to 11.9 and then 9.4. Octreotide was initiated. Clayton Jack is a 48-year-old male with a medical history significant for dysphagia from Schatzki's ring s/p esophageal dilation on 11/12/2023, GERD return to the ED after dizziness and presyncope. Patient initially presented to hospital for outpatient EGD for dysphagia and underwent esophageal dilation for Schatzki's ring. Procedure went well and patient was stable after the procedure. Patient went home and was doing yard work when he started to feel nauseous, thereafter had multiple episodes of large-volume hematemesis with clots. Patient came to the ED and workup revealed stable hemoglobin and no further episodes of hematemesis or other GI bleeds, hemodynamically stable and therefore discharged. On the drive home, patient reported feeling nauseous and thought he was about to pass out. immediately brought the patient back to the ED. She took him to the bathroom and patient had a large dark/black bowel movement and again thought he was going to pass out, looked pale and diaphoretic. Patient was moved to the ED bed and patient reported feeling better. Blood pressure at that time was 89/60, HR 60 bpm. Other vitals stable. Repeat hemoglobin 15.5-14.2, after 1 L fluid bolus. BUN continues to rise from 28-31 indicating likely blood reabsorption with creatinine stable. Gastroenterology was consulted and recommended monitoring the patient overnight with serial H/H and vitals. Case was discussed with ED provider and decision was made to admit patient for upper GI bleed. Hospital Course Hospital Course Hospital Course: Clayton Jack is a 48-year-old male with a medical history significant for dysphagia from Schatzki's ring s/p esophageal dilation on 11/12/2023, GERD return to the ED after dizziness and presyncope. Patient initially presented to hospital for outpatient EGD for dysphagia and underwent esophageal dilation for Schatzki's ring. Procedure went well and patient was stable after the procedure. Patient went home and was doing yard work when he started to feel nauseous, thereafter had multiple episodes of large-volume hematemesis with clots. Patient came to the ED and workup revealed stable hemoglobin and no further episodes of hematemesis or other GI bleeds, hemodynamically stable and therefore discharged. On the drive home, patient reported feeling nauseous and thought he was about to pass out. immediately brought the patient back to the ED. She took him to the bathroom and patient had a large dark/black bowel movement and again thought he was going to pass out, looked pale and diaphoretic. Patient was moved to the ED bed and patient reported feeling better. Blood pressure at that time was 89/60, HR 60 bpm. Other vitals stable. Repeat hemoglobin 15.5-14.2, after 1 L fluid bolus. BUN continues to rise from 28-31 indicating likely blood reabsorption with creatinine stable. Gastroenterology was consulted and recommended monitoring the patient overnight with serial H/H and vitals. Bleeding distal esophageal tear. Hemoglobin dropped ultimately to 9 prior to transfusion received 1 unit packed red blood cells. Showed hemodynamic stability thereafter. Serial labs obtained on day of discharge showing stability. Stable to discharge home with close follow-up with GI. Problems addressed as follows: #Upper GI bleed # Acute blood loss anemia #Schatzki's ring s/p esophageal dilation on 11/12/2023 ?Patient underwent outpatient EGD with esophageal dilation due to Schatzki's ring. Was discharged home proceeded to have an episode of hematemesis at home. Presented to the ER twice due to persistent hematemesis and syncope. Patient was admitted for monitoring. He continued to have hematemesis and began having melenic stools. Serial hemoglobins initially at 15 before EGD, proceeded to drop on serial monitoring to 9. Received 1 unit of packed red blood cells. Received 3 L IV fluids and was initiated on octreotide. Started to have some improvement in his hematemesis. GI was consulted and patient was taken back for repeat EGD morning after admission. Found to have Distal esophageal tear with adherent clot status post removal of polyp with epinephrine injection and Endo Clip placement with hemostasis and control of bleeding. Patient was monitored for an additional 24 hours. Initial labs showed hemoglobin of 10 on day of repeat scope with serial labs twice that day. Following morning, hemoglobin dropped to 8.2. Patient otherwise felt better. BUN had improved to 17 with normal creatinine. No further stool for 24 hours. Low concern for continued bleeding. Given patient's hemodynamic stability, stable hemoglobin at 8.2 on serial labs on day of discharge, symptomatic improvement, deemed stable to discharge home with close follow-up the following day with GI. Recommend slowly advancing to regular diet. Encourage patient to take the next 7 to 10 days off work for rest and recuperation to decrease risk for rebleeding. Continue PPI at discharge. Discharged in the care of his . Patient and comfortable plan. Total time spent on discharge 38 minutes in counseling, documentation, chart review, and direct care with patient. Exam Data for Last 24 hours Vital signs and Labs for Last 24 Hours: Temp Pulse Resp BP Pulse Ox O2 Del Method O2 Flow Rate 97.9 F 70 18 85/47 L 99 Room Air 5 11/14/23 08:00 11/14/23 08:00 11/14/23 08:00 11/14/23 08:00 11/14/23 08:00 11/14/23 09:00 11/13/23 06:31 Laboratory Results - last 24 hr 11/13/23 13:10: Hgb 10.1 L, Hct 31.5 L 11/14/23 05:43: WBC 6.7, RBC 2.48 L, Hgb 8.2 L D, Hct 25.6 L, MCV 103.4 H, MCH 32.9 H, MCHC 31.9, RDW 13.8, Plt Count 182, MPV 10.4, Neut % (Auto) 55.2, Lymph % (Auto) 32.6, [place] % (Auto) 6.3, Eos % (Auto) 5.1, Baso % (Auto) 0.7, Neut # (Auto) 3.7, Lymph # (Auto) 2.2, [place] # (Auto) 0.4, Eos # (Auto) 0.3, Baso # (Auto) 0.1 11/14/23 06:20: Sodium 136, Potassium 3.8, Chloride 106, Carbon Dioxide 29, Anion Gap 4.8 L, BUN 17 D, Creatinine 1.00, Estimated Creat Clear 111, Estimated GFR 80, Est GFR ( Amer) 97, Glucose 95, Calcium 7.5 L, Total Bilirubin 0.5, AST 19, ALT 15, Alkaline Phosphatase 37 L, Total Protein 4.2 L, Albumin 2.4 L, Globulin 1.8, Albumin/Globulin Ratio 1.3 I & O for Last 24 hours: Intake & Output 11/11/23 11/12/23 11/13/23 11/14/23 23:59 23:59 23:59 23:59 Intake Total 1835 / 1835 600 / 900 300 / 300 Output Total 1500 / 1500 0 / 0 0 / 0 Balance 335 / 335 600 / 900 300 / 300 Weight 85.548 kg 85.5 kg 85.729 kg Constitutional Constitutional: no acute distress *Routine HEENT Exam Head: Present normocephalic Eye: Present EOMI and PERRL ENT: Present mucous membranes moist *Routine Neck Exam Neck: Present supple; Absent lymphadenopathy *Routine Respiratory Exam Respiratory: Present CTA bilaterally; Absent rhonchi, wheezes or crackles *Routine Cardiovascular Exam Cardiovascular: Present RRR *Routine Abdominal Exam Abdominal: Present soft, normoactive bowel sounds and tenderness (Minimal epigastric tenderness) *Routine Rectal Exam Patient deferred: visual exam *Routine Exam Patient deferred: penile exam *Routine Extremities Exam Extremities: Absent cyanosis, clubbing or edema *Routine Skin Exam Skin: Present pallor and warm; Absent rash *Routine Neurological Exam Neurological: Present alert, oriented X3 and moving all extremities; Absent altered mental status Results Data Completed and Pending Labs on day of discharge: Labs from last 24 hours 11/14/23 11/14/23 11/13/23 06:20 05:43 13:10 WBC 6.7 RBC 2.48 L Hgb 8.2 L D 10.1 L Hct 25.6 L 31.5 L MCV 103.4 H MCH 32.9 H MCHC 31.9 RDW 13.8 Plt Count 182 MPV 10.4 Neut % (Auto) 55.2 Lymph % (Auto) 32.6 [place] % (Auto) 6.3 Eos % (Auto) 5.1 Baso % (Auto) 0.7 Neut # (Auto) 3.7 Lymph # (Auto) 2.2 [place] # (Auto) 0.4 Eos # (Auto) 0.3 Baso # (Auto) 0.1 Sodium 136 Potassium 3.8 Chloride 106 Carbon Dioxide 29 Anion Gap 4.8 L BUN 17 D Creatinine 1.00 Estimated Creat Clear 111 Estimated GFR 80 Est GFR ( Amer) 97 Glucose 95 Calcium 7.5 L Total Bilirubin 0.5 AST 19 ALT 15 Alkaline Phosphatase 37 L Total Protein 4.2 L Albumin 2.4 L Globulin 1.8 Albumin/Globulin Ratio 1.3 DS: Diagnosis Discharge Diagnosis (1) Acute upper GI bleed: Status: Acute Code(s): K92.2 - Gastrointestinal hemorrhage, unspecified (2) Acute blood loss anemia: Status: Acute Code(s): D62 - Acute posthemorrhagic anemia (3) GERD (gastroesophageal reflux disease): Status: Acute Code(s): K21.9 - Gastro-esophageal reflux disease without esophagitis (4) Schatzki ring of distal esophagus: Status: Acute Code(s): K22.2 - Esophageal obstruction Meds Home Medications and Allergies Home Medications ?Medication ?Instructions ?Recorded ?Confirmed ?Type multivitamin 1 tab PO DAILY 11/09/23 11/12/23 History ondansetron 4 mg disintegrating 4 mg PO Q6H PRN nausea and 11/12/23 11/12/23 Rx tablet vomiting #10 tabs pantoprazole 40 mg tablet,delayed 40 mg PO HS 30 days #30 tabs 11/14/23 Rx release New Prescriptions to Start Prescriptions: pantoprazole Julian Espinoza Allergies Allergy/AdvReac Type Severity Reaction Status Date / Time hydrocodone AdvReac Mild NA-NAUSEA/V Verified 11/12/23 16:20 OMITING Discharge Plan Disposition Patient Disposition: Home, Self-Care Condition: Fair Discharge Order Discharge Orders: Discharge Patient (Nurse per MD order) (Routine); Ordered 11/14/23 Ordered By: Julian Espinoza Discharge Order (Routine); Ordered 11/14/23 Ordered By: Julian Espinoza Follow up Plan Follow up with: Steven Lozada II, MD [Staff Physician] - 11/15/23 9:00 am (Follow-up in the office with Supriya Austin 24 hours after discharge) Behzad Altamirano MD [Primary Care Provider] - 11/19/23 3:00 pm Prescriptions/Medication Reconciliation: New pantoprazole 40 mg Tablet,Delayed Release (Dr/Ec) 40 mg PO HS 30 Days Qty: 30 0RF Continued multivitamin Tablet 1 tab PO DAILY ondansetron 4 mg tablet,disintegrating 4 mg PO Q6H PRN (Reason: nausea and vomiting) Qty: 10 1RF Problem Reconciliation Problems Reviewed?: Yes Patient Discharge Instructions ACTIVITY: Ambulate as tolerated, Limited activity and No heavy lifting DIET: continue same diet and advance to your usual diet Stand Alone Forms: [facility] School Release, [facility] Work Release Patient Instructions: DI for Syncope in Adults (Fainting), DI for Upper GI Endoscopy, DI for Gastrointestinal Bleeding, Gastrointestinal Bleeding Print Language: Georgian Providers Primary Care Provider: Behzad Altamirano Admit Provider: Julian Espinoza Attending Provider: Julian Espinoza
[2023-11-14 12:00] VITALS: BP 91/50
--- NOTE | 2023-11-14 14:08 | P.PN_ITS ---
Subjective *Date: 11/14/23 *Time: 14:15 Interval history: No black stool since yesterday morning. Has been able to eat and drink appropriately without nausea or vomiting. Has been off of octreotide for about 24 hours and off of IV fluids for greater than 24 hours. Did have a drop in hem oglobin from 10.1 yesterday afternoon to 8.2 this morning. Patient reports feeling improvement is nontender to palpation on exam is scheduled to have another lab draw this afternoon prior to potential discharge Exam Data for Last 24 hours Vital signs and Labs for Last 24 Hours: Temp Pulse Resp BP Pulse Ox O2 Del Method O2 Flow Rate 97.9 F 70 18 85/47 L 99 Room Air 5 11/14/23 08:00 11/14/23 08:00 11/14/23 08:00 11/14/23 08:00 11/14/23 08:00 11/14/23 13:00 11/13/23 06:31 Laboratory Results - last 24 hr 11/14/23 05:43: WBC 6.7, RBC 2.48 L, Hgb 8.2 L D, Hct 25.6 L, MCV 103.4 H, MCH 32.9 H, MCHC 31.9, RDW 13.8, Plt Count 182, MPV 10.4, Neut % (Auto) 55.2, Lymph % (Auto) 32.6, [place] % (Auto) 6.3, Eos % (Auto) 5.1, Baso % (Auto) 0.7, Neut # (Auto) 3.7, Lymph # (Auto) 2.2, [place] # (Auto) 0.4, Eos # (Auto) 0.3, Baso # (Auto) 0.1 11/14/23 06:20: Sodium 136, Potassium 3.8, Chloride 106, Carbon Dioxide 29, Anion Gap 4.8 L, BUN 17 D, Creatinine 1.00, Estimated Creat Clear 111, Estimated GFR 80, Est GFR ( Amer) 97, Glucose 95, Calcium 7.5 L, Total Bilirubin 0.5, AST 19, ALT 15, Alkaline Phosphatase 37 L, Total Protein 4.2 L, Albumin 2.4 L, Globulin 1.8, Albumin/Globulin Ratio 1.3 I & O for Last 24 hours: Intake & Output 11/12/23 11/13/23 11/14/2303/24 11:59 11:59 11:59 11:59 Intake Total 1835 900 Output Total 1500 0 Balance 335 900 Weight 85.5 kg 85.729 kg *Routine Respiratory Exam Respiratory: Present CTA bilaterally, able to speak in complete sentences and symmetric chest movement *Routine Cardiovascular Exam Cardiovascular: Present RRR *Routine Abdominal Exam Abdominal: Present soft and normoactive bowel sounds; Absent tenderness, distended, guarding, firm or rigid Assessment and Plan *Assessment and plan (1) Upper GI bleed: Status: Acute Category: Medical Code(s): K92.2 - Gastrointestinal hemorrhage, unspecified (2) Acute blood loss anemia: Status: Acute Category: Medical Code(s): D62 - Acute posthemorrhagic anemia (3) Schatzki ring of distal esophagus: Status: Acute Category: Medical Code(s): K22.2 - Esophageal obstruction (4) Hematemesis of fresh blood: Status: Acute Category: Medical Code(s): K92.0 - Hematemesis (5) Dysphagia: Status: Acute Category: Medical Code(s): R13.10 - Dysphagia, unspecified (6) Lower esophageal tear with hemorrhage: Status: Acute Category: Medical Code(s): K22.6 - Gastro-esophageal laceration-hemorrhage syndrome Plan Lower esophageal's tear status post clot removal, epinephrine injection and Endo Clip placement with hemostasis and control of bleeding during endoscopy yesterday morning. Did require a unit of packed red cells and octreotide drip. He has been off the octreotide for 24 hours and off IV fluids for 24 hours. Has had no melena or black stools for 24 hours did have a drop in his hemoglobin from yesterday afternoon at 10.1-8.2 this morning. He has been able to eat drink appropriately. From last night to this morning. Benign exam the patient is slightly pale. He is scheduled to have lab redraw this afternoon and the decision about discharge at that point. I would like to see him in the office in 24 hours and we will repeat labs if he is discharged home. We can reevaluate if he has another drop in his hemoglobin hematocrit
[2023-11-14 14:57] LABS: Hematocrit 25.3 % (42.0-52.0); Hemoglobin 8.2 g/dL (14.1-18.0)
--- NOTE | 2023-11-16 10:35 | CARE MANAGER ---
Attempted to contact patient x 2 related to hospital discharge. Left VM messagel. BUTCH Pryor
== END 2023-11-14 16:01 | disposition home or self-care (01) | DRG 392 ==
LOC: ER 18:13 → 2ND 19:10
PROVIDERS: Internal Medicine Gastroenterology; Student in an Organized Health Care Education/Training Program; Admitting Provider Internal Medicine Adolescent Medicine; Emergency Provider Emergency Medicine; PCP Internal Medicine Adolescent Medicine; Visit Provider Internal Medicine Adolescent Medicine
PROC: 0DJ08ZZ Inspection of Upper Intestinal Tract, Via Natural or Artificial Opening Endoscopic (ICD-10-PCS; CPT 43235; principal; 2023-11-13 06:20)
DX: K22.89 Other specified disease of esophagus (principal); D62 Acute posthemorrhagic anemia; K92.0 Hematemesis; K21.9 Gastro-esophageal reflux disease without esophagitis; K22.2 Esophageal obstruction; Z86.16 Personal history of COVID-19
CPT/HCPCS: 43255; 36415; 80053; 82803; 83735; 84484; 85014; 85018; 85025; 93005; 99221; 99231; 99285; J2354; J2405; J2550; J3475; J7030; J7120

== ENCOUNTER 2023-11-15 09:44 | Outpatient (CLI) | payer BC, SELFPAY ==
[2023-11-15 09:57] LABS: Basophils # 0.1 K/mm3 (0-0.2); Basophils % 0.8 % (0.1-2.0); Eosinophils # 0.6 K/mm3 (0.0-0.4); Eosinophils % 8.2 % (0.1-12.0); Hematocrit 27.9 % (42.0-52.0); Lymphocytes # 2.2 K/mm3 (0.7-4.5); Lymphocytes % 31.8 % (10-50); Mean Corpuscular HGB Conc 32.9 g/dL (31.8-35.4); Mean Corpuscular Hemoglobin 32.9 pg (27.0-31.2); Mean Corpuscular Volume 99.9 fl (80-94); Mean Platelet Volume 8.9 fl (7.4-10.4); Monocytes # 0.4 K/mm3 (0.1-1.0); Monocytes % 5.9 % (1.7-9.3); Neutrophils # 3.7 K/mm3 (1.8-7.8); Neutrophils % 53.4 % (37.0-80.0); Platelet Count 229 K/mm3 (142-424); Red Cell Distribution Width 13.5 % (11.5-17.5)
[2023-11-15 10:22] LABS: Hemoglobin 9.1 g/dL (14.1-18.0)
== END 2023-11-15 23:59 | disposition home or self-care (01) ==
LOC: LAB 09:44
PROVIDERS: PCP Internal Medicine Adolescent Medicine; Visit Provider Nurse Practitioner Family
DX: K22.6 Gastro-esophageal laceration-hemorrhage syndrome (principal); D62 Acute posthemorrhagic anemia
CPT/HCPCS: 36415; 85025

== ENCOUNTER 2024-05-28 14:59 | Outpatient (POV) | payer BC, SELFPAY ==
[2024-05-28 15:24] VITALS: BP 104/83; PULSE 69; RESP 18; O2SAT 97; BMI 23.7
--- NOTE | 2024-05-28 15:41 | EXP.PAIN.OV ---
HPI Data of Consult Patient: new to practice Consult date: 05/28/24 Requesting Physician: Teresa Johnson APRN Primary Care Provider: Behzad Altamirano MD Consult Narrative Reason for consult: Right elbow pain History of present illness: Mr. Jack is a 49 year old male who presents today as a new patient. Today he rates his pain a 10 out of 10. Patient states that he has been having chronic elbow pain since around November. Patient denies any specific injury or trauma that initially started this pain. He states that he had undergone a endoscopic procedure and ended up having complications with a esophageal tear and he was off work for significant time when the elbow pain started. He states that it is overall a dull achy sensation when at rest however with any type of movement or certain positions will immediately go to a 10 out of 10. He states that is very tender to touch and that if he bumps it on anything it goes to a sharp agonizing pain. He denies any prior injections or surgery history in this joint. Patient is very active and exercises on a regular basis and does also spend a lot of time doing recreational sports such as golfing and has played tennis in the past. Patient does state that the pain does seem to be really aggravated with this chronic activities. Patient has tried [id number] medications such as Tylenol, heat and ice and topicals with minimal relief. Patient was prescribed Celebrex from his primary care at 200 mg daily however noticed no additional relief. Patient is interested in any help we may be able to provide. His Kurt has been reviewed and is appropriate. CC: Teresa Johnson APRN [facility] Disclaimer: The information contained in this section may have been updated after the patient was seen, as this information can be updated by other users. Medical History Deviated septum History of COVID-19 Migraine History of gastroesophageal reflux (GERD) Dyspnea Palpitations Surgical History H/O wisdom tooth extraction History of nasal septoplasty History of hernia repair History of tonsillectomy Family History Other Diabetes Hypertension Social History (Updated 05/28/24 @ 15:25 by Ana Hernandez RN) Smoking Status: Never smoker second hand exposure: No alcohol intake: current alcohol intake frequency: 0-2 drinks per day counseling provided: provider counseling substance use type: denies use current occupational status: employed Travel in the last 8 weeks: None household members: spouse and children housing: house current occupation: [employer] Review of Systems Review of Systems Review of systems:: pertinent systems reviewed and negative unless documented below Review of systems (narrative): Review of Systems: General: No recent weight changes, no fever, no sleep disturbances Respiratory: No cough, no shortness of air, no recurring pulmonary infections Cardiovascular/peripheral vascular: No chest pain, no palpitations, no edema, no shortness of breath Gastrointestinal: No new onset incontinence, normal bowel movements reported Genitourinary: No new onset incontinence Musculoskeletal: Right elbow pain Psychiatric: [Normal mood/affect] Neurological: [Denies weakness in extremities], [denies balance issues] Meds Home Medications and Allergies Home Medications ?Medication ?Instructions ?Recorded ?Confirmed ?Type multivitamin 1 tab PO DAILY 11/09/23 05/28/24 History ondansetron 4 mg disintegrating 4 mg PO Q6H PRN nausea and 11/12/23 05/28/24 Rx tablet vomiting #10 tabs ferrous sulfate 325 mg (65 mg 325 mg PO DAILY #30 tabs 11/15/23 05/28/24 Rx iron) tablet New Prescriptions to Start Prescriptions: Allergies Allergy/AdvReac Type Severity Reaction Status Date / Time hydrocodone AdvReac Mild NA-NAUSEA/V Verified 11/15/23 08:59 OMITING Objective Vital signs: Pulse Resp BP Pulse Ox O2 Del Method 69 18 104/83 L 97 Room Air 05/28/24 15:24 05/28/24 15:24 05/28/24 15:24 05/28/24 15:24 05/28/24 15:24 Narrative: Physical Exam: General: Alert and oriented x3, no acute distress, pleasant and cooperative Lungs: Respirations even and unlabored, symmetrical chest expansion Eyes: PERRL Musculoskeletal: Flexion and extension of right elbow somewhat guarded secondary to pain, point tenderness along the lateral epicondyles Neurological: Speech clear, no gross sensory deficit Assessment and Plan *Assessment and plan (1) Lateral epicondylitis of right elbow: Status: Acute Category: Medical Code(s): M77.11 - Lateral epicondylitis, right elbow Plan Patient is experiencing chronic pain in his right elbow that is consistent with tennis elbow. I did discuss with the patient that I do believe he may benefit from a lateral epicondyle injection on the right side. Risk and benefits were discussed with the patient and he would like to proceed forward with this plan of care. I will also order the patient compounded cream and send in a 2-week dose of diclofenac 75 mg twice daily. Patient was counseled to discontinue all other NSAIDs while taking this medication and to take it with food to minimize GI upset. Patient acknowledges understanding and agrees with this plan of care. Patient will be scheduled for a right lateral epicondyle injection. This will be done without fluoroscopic guidance or ultrasound. Patient has been instructed to contact the clinic with any concerns before the next appointment. Dr. Cuadra has reviewed this note and agrees with this plan of care. This note was dictated using voice recognition software and make contain errors or omissions. All injections are used with Lidocaine, Bupivacaine and Depo Medrol. Occasionally urine drug screen is needed to verify patient's compliance with our office pain contract. This is ordered based off specific treatments related to chronic pain with the potential to abuse certain medications.
== END 2024-05-28 23:59 | disposition home or self-care (01) ==
PROVIDERS: PCP Internal Medicine Adolescent Medicine; Visit Provider Nurse Practitioner Family
DX: M77.11 Lateral epicondylitis, right elbow (principal)
CPT/HCPCS: 99202; G0463